=== PATIENT | female | born 2000 | race Caucasian/White ===

== ENCOUNTER 2019-12-29 18:45 | Inpatient (IN) | payer OTHER, MEDICAID, SELFPAY ==
[2017-03-29 15:23] VITALS: BMI 27.8
[2019-12-29] VITALS (11 sets, daily range): BP systolic 134–149; BP diastolic 76–92; PULSE 73–94; TEMP 36.1–36.3; O2SAT 84–98; BMI 33.4
[2019-12-29] MEDS: Lactated Ringers 1,000 ML 50 ML IV (19:25)
[2019-12-29 19:55] LABS: Absolute Lymphocyte Count 2.14 X10^3/uL (0.83-4.51); Absolute Neutrophil Count 7.4 X10^3/uL (2.0-7.7); Basophil# 0.02 X10^3/uL; Basophil% 0.2 % (0-1); Eosinophil# 0.06 X10^3/uL; Eosinophils% 0.6 % (0-5); Hematocrit 34.7 % (37-47); Hemoglobin 10.8 g/dL (12.0-15.0); Lymphocyte # 2.14 X10^3/ul (4.0); Lymphocyte % 20.6 % (19-41); Mean Corp Hgb Conc 31.1 g/dL (32-36); Mean Corpuscular Hgb 27.8 pg (27.0-32.0); Mean Corpuscular Volume 89.4 fL (81-99); Mean Platelet Vol. 11.2 fl (6.2-12.0); Monocyte# 0.72 X10^3/uL; Monocyte% 6.9 % (0-10); NRBC Flagged by Analyzer 0 % (0-5); Neutrophil # 7.43 X10^3/uL (2.7-7.7); Neutrophil % 71.3 % (47-70); Platelet Count 295 K/mm3 (150-450); RBC Distribution Width SD 47.4 fl (35.1-43.9); Red Blood Count 3.88 M/mm3 (4.2-5.4); White Blood Count 10.4 K/mm3 (4.4-11.0)
[2019-12-29] MEDS: 0.9% Normal Saline Single 100 ML IV.SOLN. IY (20:20)
[2019-12-29] MEDS: Oxytocin 30 units/NS 500 ml 30 UNITS/500 ML IV.SOLN IV (20:31)
[2019-12-30] VITALS (52 sets, daily range): BP systolic 107–154; BP diastolic 55–96; PULSE 69–104; RESP 16–18; TEMP 36.1–37.2; O2SAT 93–100
[2019-12-30] MEDS: Lactated Ringers 500 ML 999 ML IV (00:16)
[2019-12-30] MEDS: fentaNYL-bupivacaine (epidural) 100 ML BAG EPIDURAL (01:15)
[2019-12-30] MEDS: Lactated Ringers 1,000 ML 200 ML IV ×2 (03:48→08:49)
[2019-12-30] MEDS: Ondansetron 4 MG/2 ML Vial IV (04:21)
--- NOTE | 2019-12-30 08:21 | HP.PCM_ITS ---
History Date of Admission: 12/30/19 Final DK: 12/23/19 Final DK Source: US <20 weeks Gestational age: 41 Weeks and 0 Days History of this : This is a 19 year-old avid 1 para 0 admitted at 40-6/7 weeks on 12/29/2019 for cervical ripening and induction of labor for 41-week . She denies any vaginal bleeding or leaking of fluid. She had good movement. Is feeling contractions. has been uncomplicated to date. She does have a past medical history of depression. Allergies azithromycin [From Zithromax] Allergy (Mild, Verified 12/29/19 20:01) Rash Home Medications: Home Medications Fluoxetine [Prozac] 20 mg PO DAILY 12/29/19 Pantoprazole Sodium [Protonix] 20 mg PO DAILY 12/29/19 Vit No.130/Iron/Folic [ Tablet] 1 ea PO DAILY 12/29/19 Smoking Status: Former smoker Alcohol: None Number of Fetus(es): 1 History Past Pregnancies: Past Pregnancies Delivery Date Name GA/ Weeks Outcome Route Wt Sex Labor Length Anesthesia Delivery Location Provider FOB Expected Delivery Method: Spontaneous Vaginal Review of Systems Constitutional: Denies: Anorexia, Chills, Fever Eyes: Denies: Blurred vision Cardiovascular: Denies: Chest Pain Respiratory: Denies: Cough, Shortness of Breath Gastrointestinal: Denies: Diarrhea Gynecological: Denies: Vaginal bleeding Skin: Denies: Rash Neurological: Denies: Balance problems, Blurred vision, Slurred speech, Confu francis Hematologic/ Lymphatic: Denies: Easy Bruising, Easy Bleeding, Hx of blood clot Physical Exam Vitals: Vital Signs Temp Pulse BP Pulse Ox 98.4 F 87 144/67 H 94 12/30/19 07:20 12/30/19 08:19 12/30/19 08:17 12/30/19 08:19 General: Alert, Cooperative, No apparent distress Cardiovascular: Regular rate Lungs: Normal air movement Abdomen: Soft, Non Tender, Non-Distended, Gravid Extremities:: No edema Neurological: Cranial nerves II-XII grossly intact, Neuro grossly intact, Muscle tone normal 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 Risk benefits and alternatives to induction of labor been discussed with patient, her questions were answered to her satisfaction she desired to proceed. Consent was previously signed in the office. Estimated weight is less than 4500 g clinically, pelvis clinically adequate to expect vaginal delivery. Seizure note: Payton catheter was placed over stylette into the internal cervical loss without difficulty in the usual sterile fashion. The balloon was inflated to 30 cc. Patient and fetus tolerated the procedure well. Placement of her internal loss was confirmed. Start Pitocin for induction of labor.
[2019-12-30] MEDS: Oxytocin 30 units/NS 500 ml 30 UNITS/500 ML IV.SOLN 334 UNITS IV (09:06)
[2019-12-30] MEDS: miSOPROStol 200 MCG Tablet 800 MCG RECTAL (09:20)
--- NOTE | 2019-12-30 09:22 | PCM.OPRPT ---
Vaginal Delivery Maternal Presentation: Medically Indicated Induction Method of Induction: Pitocin, Payton Bulb Medical Reason for Induction: - - 41 weeks Amniotic Membrane Rupture Type: Artificial Amniotic Fluid Description: Clear Final DK: 12/23/19 Final DK Source: US <20 weeks Gestational age: 41 Weeks and 0 Days Date of Procedure: 12/30/19 Pre-Operative Diagnosis: labor Post-Operative Diagnosis: same Surgery/ Procedure Performed: Spontaneous Vaginal Delivery Type of Anesthesia: Epidural Description of Procedure: A vigorous male was delivered [COLBY] over first-degree vaginal laceration. The remainder the infant was delivered with maternal pushing and gentle traction only in less than 15 seconds. The Pitocin infusion was initiated for active management of the third stage. The cord was clamped and cut [after 1 minute]. The infant was attended to by the waiting nursing staff. The placenta was delivered spontaneously and intact. The cervix and vagina were intact. The fundus was firm, however the patient continued to trickle a small amount of blood even with fundal massage. The Pitocin infusion was going. Another reexamination of the vagina and cervix found them to be intact. Cytotec was given rectally 800 mcg, to prevent atony. First-degree vaginal laceration was repaired with 3-0 Vicryl suture in a running standard fashion. Sponge and needle counts were correct. A vaginal sweep was completed by me. Presentation: COLBY Placental Delivery Description: Spontaneous Placenta Disposition: [facility] Cord Vessel Description: 3 Vessels Cord Entanglement: None Drain: Payton to straight drain - removed before Estimated Blood Loss: 300 Infant A gender: Male - Dusty Episiotomy Description: None Medications given after delivery: IV Pitocin, - - cytotec 800 mcg rectally Complications: None
[2019-12-30] MEDS: FLUoxetine 20 MG Capsule PO (12:06)
[2019-12-30] MEDS: Naproxen 250 MG Tablet 500 MG PO (18:49)
[2019-12-31] VITALS (8 sets, daily range): BP systolic 119–137; BP diastolic 70–82; PULSE 77–105; RESP 16–18; TEMP 36.3–36.8; O2SAT 97–98
--- NOTE | 2019-12-31 09:01 | PCM.PN.OB ---
Subjective: Patient is doing well. Breast-feeding with some nipple pain. Denies lightheadedness, dizziness, chest pain, shortness of breath, leg pain. Lochia normal. Tolerating a diet without nausea or vomiting. Ambulating voiding without difficulty. - Physical Exam Vitals/I&O's: Vital Signs Temp Pulse Resp BP Pulse Ox 98.2 F 77 18 128/70 H 97 12/31/19 07:48 12/31/19 07:48 12/31/19 07:48 12/31/19 07:48 12/31/19 07:48 Oxygen Delivery Method Room Air Weight: 213 lb 10.047 oz Body Mass Index (BMI) 33.4 Intake and Output for Last 24 Hours 12/29/19 12/30/19 12/31/19 23:59 23:59 23:59 Intake Total 941.1 / 941.1 2974.53 / 2974.53 Output Total 500 / 500 1650 / 1650 Balance 441.1 / 441.1 1324.53 / 1324.53 General: Alert, No apparent distress HEENT: Atraumatic Abdomen: Soft, Non Tender, - - FF@U Skin: No rashes Neurological: Neuro grossly intact Psych/Mental Status: Normal Affect, Appropriate Microbiology Past 72 Hours 12/29/19 20:14 Mucosa - Nasopharyngeal Coronavirus COVID-19 PCR - Final Current Medications Acetaminophen (Tylenol) 1,000 mg PO Q8H PRN PRN PRN Reason: Pain Score 1-3/10 Bisacodyl (Dulcolax) 10 mg RECTAL UD PRN PRN Reason: If no BM Dibucaine (Dibucaine) 1 applic TOPICAL TID PRN PRN; Protocol PRN Reason: Discomfort Fluoxetine HCl (Prozac) 20 mg PO DAILY SERVANDO Last Admin: 12/30/19 12:06 Dose: 20 mg Documented by: Hydrocortisone (Hytone) 1 applic TOPICAL TID PRN PRN; Protocol PRN Reason: Discomfort Methylergonovine Maleate (Methergine) 0.2 mg IM X1 PRN PRN Reason: Excess bleeding/uterine atony Naproxen (Naprosyn) 500 mg PO Q8H PRN PRN PRN Reason: Pain Score 1-3/10 Last Admin: 12/30/19 18:49 Dose: 500 mg Documented by: Ondansetron HCl (Zofran) 4 mg IV Q4H PRN PRN PRN Reason: Nausea Prochlorperazine Edisylate (Compazine Iv) 10 mg IV Q6H PRN PRN PRN Reason: NAUSEA/VOMITING Senna/Docusate Sodium (Senokot-S, Casie-Colace) 1 - 2 tablet PO DAILY PRN PRN PRN Reason: Constipation Simethicone (Mylicon) 80 mg PO PCHS PRN PRN Reason: Indigestion/Stomach pain Sodium Chloride () 5 - 15 ml IV UD PRN PRN Reason: SALINE FLUSH Medical Necessity - Tobacco Use Smoking Status: Former smoker Assessment/Plan Patient is day 1 from a vaginal delivery. She is doing well. She desires to stay another night. Continue routine care.
[2019-12-31] MEDS: Senna/Docusate Sodium 1 Tablet PO (11:53)
[2019-12-31] MEDS: FLUoxetine 20 MG Capsule PO (11:54)
[2019-12-31] MEDS: Naproxen 250 MG Tablet 500 MG PO (20:16)
[2020-01-01 02:00] VITALS: BP 119/74; PULSE 82; RESP 16; TEMP 36.4
[2020-01-01 02:09] VITALS: BP 119/74; PULSE 82
--- NOTE | 2020-01-01 08:31 | PCM.PN.OB ---
Subjective: Patient doing well. Denies lightheadedness, dizziness, chest pain, shortness of breath, leg pain. She is ambulating and voiding without difficulty. Tolerating regular diet without nausea or vomiting. Lochia normal. - Physical Exam Vitals/I&O's: Vital Signs Temp Pulse Resp BP Pulse Ox 97.5 F L 82 16 119/74 98 01/01/20 02:00 01/01/20 02:09 01/01/20 02:00 01/01/20 02:09 12/31/19 14:16 Oxygen Delivery Method Room Air Weight: 213 lb 10.047 oz Body Mass Index (BMI) 33.4 Intake and Output for Last 24 Hours 12/30/19 12/31/19 01/01/20 23:59 23:59 23:59 Intake Total 2974.53 / 2974.53 Output Total 1650 / 1650 Balance 1324.53 / 1324.53 General: Alert, No apparent distress HEENT: Atraumatic Abdomen: Soft, Non Tender, - - FF@U Extremities: No Calf Tenderness Skin: No rashes Neurological: Neuro grossly intact Psych/Mental Status: Normal Affect, Appropriate Microbiology Past 72 Hours 12/29/19 20:14 Mucosa - Nasopharyngeal Coronavirus COVID-19 PCR - Final Current Medications Acetaminophen (Tylenol) 1,000 mg PO Q8H PRN PRN PRN Reason: Pain Score 1-3/10 Bisacodyl (Dulcolax) 10 mg RECTAL UD PRN PRN Reason: If no BM Dibucaine (Dibucaine) 1 applic TOPICAL TID PRN PRN; Protocol PRN Reason: Discomfort Fluoxetine HCl (Prozac) 20 mg PO DAILY SERVANDO Last Admin: 12/31/19 11:54 Dose: 20 mg Documented by: Hydrocortisone (Hytone) 1 applic TOPICAL TID PRN PRN; Protocol PRN Reason: Discomfort Methylergonovine Maleate (Methergine) 0.2 mg IM X1 PRN PRN Reason: Excess bleeding/uterine atony Naproxen (Naprosyn) 500 mg PO Q8H PRN PRN PRN Reason: Pain Score 1-3/10 Last Admin: 12/31/19 20:16 Dose: 500 mg Documented by: Ondansetron HCl (Zofran) 4 mg IV Q4H PRN PRN PRN Reason: Nausea Prochlorperazine Edisylate (Compazine Iv) 10 mg IV Q6H PRN PRN PRN Reason: NAUSEA/VOMITING Senna/Docusate Sodium (Senokot-S, Casie-Colace) 1 - 2 tablet PO DAILY PRN PRN PRN Reason: Constipation Last Admin: 12/31/19 11:53 Dose: 2 tablet Documented by: Simethicone (Mylicon) 80 mg PO PCHS PRN PRN Reason: Indigestion/Stomach pain Sodium Chloride () 5 - 15 ml IV UD PRN PRN Reason: SALINE FLUSH Medical Necessity - Tobacco Use Smoking Status: Former smoker Assessment/Plan Patient is day 2 from a vaginal delivery. She is doing well and desires to go home. Reviewed discharge instructions and follow-up in the office.
--- NOTE | 2020-01-01 08:33 | DCINST_ITS ---
Discharge Diet: No Restrictions Discharge Activity: Return to Normal Activity, May Shower, May Take a Tub Bath May resume sexual activity in: 6 weeks Ice area for (Minutes): 15 Weight Bearing Status: Weight bearing as tolerated Lifting Restrictions: None Call your doctor if you observe: Fever of 101 or Higher, Inability to urinate, Inability to have a bowel movement, Using more than one pad per hour, Shortness of breath, Dizziness, Chest pain, Increased palpitations (irregular heartbeat), Calf discomfort, Uncontrolled pain Cleanse incision/area with: Soap & Water Additional Instructions: If you experience any of the following, contact your healthcare provider. * Bleeding that soaks a pad every hour for 2 hours * Fever 100.4 or higher * Unrelieved incision or abdominal pain * Swelling, redness, discharge or bleeding from your incision or episiotomy site * Your incision begins to separate * Problems urinating (including inability to urinate or burning while urinating). * Visual changes * Severe headache * Flu-like symptoms * Pain or redness in one of both of your breasts * Pain, warmth, tenderness or swelling in your legs, especially the calf area * Frequent nausea and vomiting * Symptoms of depression or anxiety If you experience any of the following, call 911 or go to the nearest Emergency Room. * Chest pain * Problems breathing * Seizure activity * Partial or complete paralysis of a body part, slurred speech, weakness or drooping of the face, or a sudden inability to walk or hold your balance Allergies/Adverse Reactions: Allergies azithromycin [From Zithromax] Allergy (Mild, Verified 12/29/19 20:01) Rash Medications to take at Discharge Fluoxetine [Prozac] 20 mg PO DAILY 12/29/19 Pantoprazole Sodium [Protonix] 20 mg PO DAILY 12/29/19 Vit No.130/Iron/Folic [ Tablet] 1 ea PO DAILY 12/29/19 When: In 6 weeks for visit. Can also follow up in 1-2 weeks for virtual visit Primary Care Physician: Yolanda Christian PA-C [Primary Care Provider] - Test Results: Test results from this visit will be discussed in further detail at your follow- up appointment, if applicable.
[2020-01-01 08:55] VITALS: BP 133/59; PULSE 63; RESP 16; TEMP 36.1; O2SAT 99
[2020-01-01 09:00] VITALS: BP 133/59; PULSE 76
[2020-01-01] MEDS: FLUoxetine 20 MG Capsule PO (10:28)
--- NOTE | 2020-01-01 11:15 | CASEMGMT ---
Social Work Brief Assessment - Labor and Delivery Unit Refer documentation below for further details. Date of Referral/Notification: 01/01/2020 Time of Referral: 11:15a Referred By: NURSING Reason for Referral: HISTORY OF DEPRESSION/ANXIETY Informant: Medical record and mother of baby (MOB) History: FIRST TIME MOM WITH HISTORY OF DEPRESSION AND ANXIETY. MOB REPORTS IS PRESCRIBED PROZAC AND MENTAL HEALTH IS WELL MANAGED WITH MEDICATION. Assessment: MET WITH MOB AND FOB IN ROOM. INTRODUCED ROLE AND REASON FOR REFERRAL. MOB REPORTS BABY BOY, KARI COLLINS IS FIRST CHILD FOR BOTH MOB AND FOB, HOLLIE COLLINS. MOB REPORTS GOOD SUPPORT FROM FOB. MOB DISCUSSED MENTAL HEALTH HISTORY AND STATES HAS BEEN TO COUNSELING IN THE PAST. MOB REPORTS TO HAVE MET WITH A PSYCHIATRIST AND WAS PRESCRIBED PROZAC. MOB DENIES ANY NEEDS FOR COUNSELING SERVICES AT THIS TIME AND STATES MENTAL HEALTH IS WELL MANAGED WITH MEDICATION. MOB DENIES ANY HISTORY OF SUBSTANCE USE FOR SELF AND STATES FOB HAS BEEN IN RECOVERY FROM ALCOHOL FOR 6 MONTHS. 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 MOB STATES TO HAVE ALL NEEDS MET FOR BABY INCLUDING; DIAPERS, WIPES, CRIB, CAR SEAT, CLOTHES. MOB REPORTS IS . WHILE DISCUSSING , MOB BECAME TEARFUL. MOB STATES BABY HAS BEEN CLUSTER FEEDING AND HAS LAST NIGHT WAS A ?ROUGH NIGHT?. MUCH SUPPORT, ENCOURAGEMENT AND ACTIVE LISTENING PROVIDED. MOB REPORTS TO HAVE ASKED NURSING SOME QUESTIONS REGARDING . THIS WORKER INFORMED MOB WILL UPDATE NURSING AND ENCOURAGE FOLLOW UP PRIOR TO DISCHARGE. DISCUSSED HELP ME GROW AND MOB OPEN TO REFERRAL. REVIEWED SIGNS/SYMPTOMS OF POST DEPRESSION AND PROVIDED EDUCATIONAL RESOURCES. UPDATED MOB?S NURSE, PAULA ON THIS WORKER?S ASSESSMENT. NURSING CONTACTED NURSE TO FOLLOW UP WITH MOB PRIOR TO DISCHARGE. Plan: HOME WITH RESOURCES PROVIDED. REFERRAL TO HELP ME GROW. No further needs requested or indicated. -Kathie Riley, CHIEF SPECIALIST LEED, BLOCK SAW OPERATOR
--- NOTE | 2020-01-01 15:47 | CASEMGMT ---
SOCIAL WORK HELP ME GROW REFERRAL SUBMITTED VIA [employer]ITE.
--- OUTSIDE RECORDS SUMMARY | 2020-05-20 16:30 | XMS RPT_ITS | CCD ---
:2000 External Reference #:[id number] Author Organization [facility] Team Providers Name Role Phone Unavailable Primary Care Physician Unavailable Allergies Reported Allergen Reaction(s) Severity Date of Onset Location Azithromycin Rash 05-03-2019 - [facility] ([id number]) Medications Medication Name Sig Date Prescriber Location Breast Pump Breast Pump 12-13-2019 - Radha (Carole) Lorri [facility] Indications: 12-10-2020 Radha Parks) Lorri ([id number]) Lactating mother Use as directed 1 Each 0 12/13/2019 12/10/2020 Active Comment: Use as directed FLUoxetine FLUoxetine (PROZAC) 20 11-21-2019 Filiberto Mike [facility] mg capsule Take 1 Filiberto Mike ([id number]) capsule by mouth once daily. 0 11/21/2019 Active Comment: Take 1 capsule by mouth once daily. Levonorgestrel levonorgestrel (MIRENA) 02-19-2020 [facility] Provider Cc f [facility] 20 mcg/24 hours (5 yrs) Provider ([id number]) 52 mg IUD 1 Each by INTRAUTERINE route continuous. 0 02/19/2020 Active Comment: 1 Each by INTRAUTERINE route continuous. pantoprazole ellie CORCORAN (PROTONIX) 12-05-2019 Filiberto joseph [facility] 20 mg tablet Indications: Filiberto Sierra ([id number]) Gastroesophageal reflux disease without esophagitis take 1 tablet by mouth once daily 30 tablet 1 12/05/2019 Active Comment: take 1 tablet by mouth once daily [facility] Provider [facility] Nlrlwheo-Vs-Xnb-Fe-FA Wojururl-Ng-Xry-Fe-FA [facility] ([id number]) ( VITAMIN) tab ( VITAMIN) tab Take 1 tablet by mouth. 0 Active Comment: Take 1 tablet by mouth. Problems Category Problem Name Status Date Location Other liver diseases Elevated liver Completed 10-09-2019 - [facility] enzymes level (14838) Screening and history H/O: depression Completed 05-03-2019 - [facility] and (30177) substance abuse codes Results Result Name Value Range Unit Interpretation Flag Date Location progress on 2020-02 PROGRESS HNO ID: [id number] Normal 02-19-2020 [facility] Author: Filiberto Mike Wynne ([id number]) Service: ? Author Type: Physician Type: Progress Notes Filed: 02/19/2020 4:00 PM Note Text: Kenia Nava presents today for IUD insertion for contrace ption. Patient's last menstrual period was 03/18/2019 (exact date). GC/chlamydia: Collected today test: negative Side effects including irregular bleeding were discussed wit h the patient. She understands that it should be removed in 5 years or soon er if she desires a . IUD source: office provided IUD lot #: [id number] Exp date: 03/2022 UNIVERSAL PROTOCOL / SAFETY CHECKLIST Procedure to be performed: Mirena insertion Sign in Communication: Completed Time Out: Team Confirms the Correct Patient, Correct Procedu re, Correct Site and Site Marking, Correct Position (if applicable), Pre p and Dry Time (if applicable). Time: 1506 Affirmation of Time Out: YES Sign Out Discussion: Completed Filiberto Mike MD The ut erus sounded to 9 cm and the uterus is Retroverted.. After prepping the cervix with betadine and using sterile technique, the Mi mitesh IUD was inserted without difficulty and the string was cut to 2cm fr om the external os of the cervix. Patient tolerated procedure well. PLAN: Patient was advised to observe for signs and symptoms of infection including but not limited to fever, malodorous vaginal disch arge and/or pain. She was told to check the string monthly for accurate placement. Bleeding expectations were reviewed. Follow up for next annual exam or sooner as needed. Filibetro Mike MD gc/chlamydia amplif on 2020-02-19 Chlamydia Amplif Negative for Chlamydia Normal 02-19-2020 [facility] trachomatis by Jarrod ro ([id number]) amplification. Comment: Performed By: #### GCCT #### [facility] [place], [place] [phone] GC Amplification Negative for Neisseria Normal 02-19-2020 [facility] gonorrhoeae by Jarrod ro ([id number]) amplification. Comment: Performed By: #### GCCT #### [facility] [place], [place] [phone] GC/Chlam Amp Source Cervix Normal 02-19-2020 [facility] ([id number]) Comment: Performed By: #### GCCT #### [facility] [place], [place] [id number]- [phone] cnov on 2020-02-19 CNOV Office Visit (OBGYWM) Normal 02-19-20 [facility] KEN[facility] Mel[facility] ([id number]) 2000 [facility] Time Provider Department ([id number]) 02/19/20 2:50 PM FILIBERTO MIKE OBGYWM During your visit today, we recorded the following informati on about you: Blood pressure Weight 110/74 89.8 kg Filiberto Mike MD 02/19/2020 4:00 PM Signed Kenia Nava presents today for IUD insertion for contrace ption. Patient's last menstrual period was 03/18/2019 (exact date). GC/chlamydia: Collected today test: negative Side effects including irregular bleedin g were discussed with the patient. She understands that it should be removed in 5 years or sooner if she desires a . IUD source: office provided IUD lot #: [id number] Exp date: 03/2022 UNIVERSAL PROTOCOL / SAFETY CHECKLIST Procedure to be performed: Mirena insertion Sign in Communication: Completed Time Out: Team Confirms the Correct Patient, Correct P rocedure, Correct Site and Site Marking, Correct Position (if applicable), Prep and Dry Time (if applicable). Time: 1506 Affirmation of Time Out: YES Sign Out Discussion: Completed Filiberto Mike MD The uterus sounded to 9 cm and the uterus is Ret roverted.. After prepping the cervix with betadine and using sterile technique , the Mirena IUD was inserted without difficulty and the string was cut to 2cm from the external os of the cervix. Patient tolerated procedure well. PLAN: Patient was advised to observe for signs and symptoms of infection including but not limited to fever, malodorous v aginal discharge and/or pain. She was told to check the string monthly for accurate placem ent. Bleeding expectations were reviewed. Follow up for next annual exam or sooner as needed. MD Aileen Montejo Ma 02/19/2020 2:45 PM Signed NEXPLANON PATIENT EDUCATION You may remove dressing in 24 hours. Expect some bruising around insertion site. You may take over the counter pain medication (i.e. Tyleno l, motrin, advil, etc) if you have discomfort. Call your provider with excessive bruising or pain. Continue to use condoms for STD prevention. You should use backup contraception for 7 days to prevent pr egnancy. Referring Provider: FILIBERTO MIKE [[id number]] Allergies As of Date: 02/19/2020 Noted Allergy Reaction ZITHROMAX (AZITHROMYCIN) 05/03/2019 2 - Rash Date Reviewed: 02/19/2020 Reviewed by: Aileen Sorto Ma - Fully Assessed Reason for Visit: Insertion Of IUD [291] Primary Visit Diagnosis:Encounter for IUD insertion [Z30.430 ] Order(s):HCG QUAL UR B/O [1162401] Order #: [id number] [] levonorgestrel 20 mcg/24 hours (5 yrs) 52 mg 1 Eac h intrauterine device (MIRENA)Disp: Rfl: GC/CHLAMYDIA DNA DET [SQGCCAMP] Order #: [id number] Prescriptions as of 02/19/2020 Sig: MIRENA 20 MCG/24 HOURS (5 YRS* 1 Each by INTRAUTERINE route * FLUOXETINE 20 MG CAPSULE Take 1 capsule by mouth once * VITAMIN,CALCIUM,MINE* Take 1 tablet by mouth. BREAST PUMP Use as directed Patient not taking: Reported on 02/05/2020 PANTOPRAZOLE 20 MG TABLET,DEL* take 1 tablet by mouth once d * Patient not taking: Reported on 02/05/2020 Problem List As Of Date 02/19/2020 Noted Resolved Nausea and vomiting during [O21.9] 05/03/2019 04/1 12/2019 More... History of depression [Z86.59] 05/03/2019 More... Patient request for diagnostic testing [Z01.89] 05/03/2019 0 11/21/2019 More... Elevated liver enzymes [R74.8] 10/09/2019 More... Other instructions from your clinician: NEXPLANON PATIENT EDUCATION You may remove dressing in 24 hours. Expect some bruising around insertion site. You may take over the counter pain medication (i.e. Tylenol, motrin, advil, etc) if you have discomfort. Call your provider with excessive bruising or pain. Continue to use condoms for STD prevention. You should use backup contraception for 7 days to prevent pr egnancy. Prescriptions ordered this encounter Disp Refills Start End LEVONORGESTREL 20 MCG/24 HOURS (5 YR* 02/19/2020 02/19/2020 Route: INTRAUTERINE Encounter Status:Closed by FILIBERTO MIKE MD on 02/19/20 progress on 2020-01 PROGRESS HNO ID: [id number] Normal 02-05-2020 [facility] Author: Filiberto Mike [facility] ([id number]) Service: ? Author Type: Physician Type: Progress Notes Filed: 02/05/2020 3:21 PM Note Text: VISIT Kenia Nava is a 19 year old year old here for po stpartum visit. Delivery Summary: ROS/ Recovery: Feeding: Bottle feeding problems: None Menses since delivery: n/a Menstrual pattern prior to : Regular periods Morrice since delivery: Not resumed Depression: denies symptoms of depression. (Lines 3 AND 4 applicable if either Lines 1 or 2 are positiv e) 1. Over the past 2 weeks have you felt down, depressed, or h opeless? 2. Over the past two weeks, have you felt little interest or pleasure in doing things? 3. Have you had thoughts of harming yourself or others? N/A 4. [place] Depression Scale (EPDS) Total Score: N/A Emotional support: Yes Bowel symptoms: Negative for abdominal discomfort, blood in stools or black stools and change in bowel habits Abdomen: N/A Bladder symptoms: No dysuria, gross hematuria, urinary frequ ency, urinary urgency, or incontinence Other issues: None Last Pap: 2018 normal HPV: N/A PAST MEDICAL HISTORY Diagnosis Date - Depression - fracture nose PAST SURGICAL HISTORY Procedure Laterality Date - PAST SURGICAL HISTORY OF rhinoplasty for broken nose FAMILY HISTORY Problem Relation Age of Onset - Diabetes Mother prediabetes - Depression Mother - Hypertension Father - Depression Father - No Known Problems Brother - Cancer Maternal Grandmother Bladder - Kidney Disease Maternal Grandfather - No Known Problems Paternal Grandmother - Heart Attack Paternal Grandfather Social History Tobacco Use - Smoking status: Former Smoker Years: 3.00 Types: Cigarettes Last attempt to quit: 05/03/2018 Years since quittin.7 - Smokeless tobacco: Never Used Substance Use Topics - Alcohol use: Never Frequency: Never - Drug use: Never PHYSICAL EXAMINATION: LMP 03/18/2019 GENERAL: pleasant, female in no apparent distress HEENT: Normocephalic, atraumatic, mucus membranes moist and no lesions NECK: Supple, full range of motion, no adenopathy and thyroi d normal DERMATOLOGY: Normal, without lesions, non-icteric and non-hi rsute BREAST: soft, non-tender, symmetric, no dominant mass, carlota l nipple-areolar complex, no lymphadenopathy and no nipple dis charge CHEST: Normal inspiratory effort ABDOMEN: soft, non-tender and no masses. INCISION: No incisi onal redness, swelling, or drainage PELVIC: external genitalia normal, normal Bartholin's glands , urethra, [place]'s glands, no vulvar lesions, no cervical lesions, good vaginal support, physiologic discharge present, normal appearing per ineal body and perianal region BIMANUAL: uterus normal size, shape and consistency, no adne xal masses and non-tender NEURO: alert and oriented x3,exam grossly non-focal EXTREMITIES: normal ASSESSMENT AND PLAN: 19 year old status post with normal c ourse. Contraception plan: IUD - Mirena Follow up: RTC for annual exams and PRN, RTC for insertion o f IUD MD tr Montejo on 2020-01-07 CNPN Telephone (OBGYWM) Normal 01-07-2020 [facility] BRANDYKENIA GIPSON ([id number]) 2000 [facility] Date Time Provider Department ([id number]) 01/07/20 FILIBERTO MIKE During your visit today, we recorded the following informati on about you: Yolanda John LPN 01/07/2020 10:17 AM Signed Received [facility] paperwork for pt, spoke with pt and she is unclear as to when she wants listed as her start da te and end date. Pt has been off work d/t covid and being . Pt is speaking with her HR personal today and will call the office with that information. Yolanda Vance RN 01/14/2020 3:39 PM Signed Patient wants Start date as 12/30/19 and Return to work date 02/09/20. Melvi John LPN 01/14/2020 4:05 PM Signed Paperwork completed and placed on providers desk for signatu re. Yolanda John LPN 01/17/2020 10:00 AM Signed [facility] paperwork signed, faxed to employer, scanned into EMR a nd filed in [employer] suite. Yolanda John LPN Allergies As of Date: 01/07/2020 Noted Allergy Reaction ZITHROMAX (AZITHROMYCIN) 05/03/2019 2 - Rash Date Reviewed: 12/26/2019 Reviewed by: Qasim Green - Fully Assessed Reason for Visit: [place] Paperwork [[id number]] Prescriptions as of 01/07/2020 Sig: BREAST PUMP Use as directed PANTOPRAZOLE 20 MG TABLET,DEL* take 1 tablet by mouth once d * FLUOXETINE 20 MG CAPSULE Take 1 capsule by mouth once * VITAMIN,CALCIUM,MINE* Take 1 tablet by mouth. Problem List As Of Date 01/07/2020 Noted Resolved Nausea and vomiting during [O21.9] 05/03/201911/06 More... History of depression [Z86.59] 05/03/2019 More... Patient request for diagnostic testing [Z01.89] 05/03/2019 0 11/21/2019 More... Elevated liver enzymes [R74.8] 10/09/2019 More... Encounter Status:Closed by YOLANDA JOHN LPN on 01/17/20 progress on 2019-12 PROGRESS HNO ID: [id number] Normal 01-04-2020 [facility] Author: Yolanda John LPN ([id number]) Service: ? Author Type: ? Type: Progress Notes Filed: 01/04/2020 11:02 AM Note Text: Pt delivered via at [facility] on 12/30/[address] Mike. See O B Outcome note. Yolanda John LPN obsolete on 2019-11 OBSOLETE Refill (WOOB) Normal 12-05-2019 [facility] KENIA NAVA ([id number]) 2000 [facility] Time Provider Department ([id number]) 12/05/19 PEYTON COUGHLIN (UMU) WOOB During your visit today, we recorded the following informati on about you: Shaka Harper RN 12/05/2019 1:35 PM Signed Patient has appointment toda y [address] Mike. Request forwarded to Dr Mike Allergies As of Date: 12/05/2019 Noted Allergy Reaction ZITHROMAX (AZITHROMYCIN) 05/03/2019 2 - Rash Date Reviewed: 11/28/2019 Reviewed by: Filiberto Mike - Fully Assessed Reason for Visit: Refill Request [94] Visit Diagnosis:Gastroesophageal reflux disease without es ophagitis [K21.9] Order(s):pantoprazole DR (PROTONIX) 20 mg tablettake 1 tab let by mouth once dailyDisp: 30 tabletRfl: 1 Prescriptions as of 12/05/2019 Sig: PANTOPRAZOLE 20 MG TABLET,DEL* take 1 tablet by mouth once d * BREAST PUMP Use as directed FLUOXETINE 20 MG CAPSULE Take 1 capsule by mouth once * PROCHLORPERAZINE MALEATE 10 M* Take 1 tablet by mouth every * VITAMIN,CALCIUM,MINE* Take 1 tablet by mouth. Problem List As Of Date 12/05/2019 Noted Resolved Nausea and vomiting during [O21.9] 05/03/201911/06 More... History of depression [Z86.59] 05/03/2019 More... Patient request for diagnostic testing [Z01.89] 05/03/2019 0 11/21/2019 More... Elevated liver enzymes [R74.8] 10/09/2019 More... Prescriptions ordered this encounter Disp Refills Start End PANTOPRAZOLE 20 MG TABLET,DELAYED RE* 30 t* 1 12/05/2019 Route: ORAL Sig: take 1 tablet by mouth once daily Medications Discontinued During This Encounter pantoprazole DR (PROTONIX) 20 mg tab* 30 t* 1 09/28/201912/04 Route: ORAL Sig: Take 1 tablet by mouth once daily. Disc: Reason for discontinue is not on file. Encounter Status:Closed by FILIBERTO MIKE MD on 12/05/19 group b strep pcr o n 2019-12-05 GROUP B STREP PCR Negative for Group B Normal 0 12-05-2019 [facility] Streptococcus by PCR. Ricci ([id number]) Comment: Performed By: #### GCCT #### [facility] [address] [id number] history physical on 2019-10-15 HISTORY PHYSICAL HNO ID: [id number] Normal - [facility] Author: Yari Wynne ([id number]) Service: ? Author Type: Nurse Practitioner Type: HANDP Filed: 10/15/2019 8:20 PM Note Text: Kenia Nava a 19 year old female who is a consultation re quested by DARIO Lo, for an opinion regarding reflux. Tali blackmon recommendations will be communicated back to the requesting provider by way of shared Medical record. The patient has not been seen previously. The patient saw Peyton on leading to this consultat ion. Part of that note follows: Has taken tums, pepto bismol, pepcid, and omeprazole for heartburn and no relief. Previously seen on 09/09/19 in ED at [facility] in [place], CT scan showed hiatel hernia, given IV fluids and la bs, dehydration. Seen at [facility] yesterday for chest pain , given pepcid. Emesis x 2 each day she went to the ED, not at any o ther time. Was also told liver enzymes were elevated. Pain is mid epigastri c each time, rates pain 4-5/10 when it happens. Does not notice a relatio nship to anything she has eaten. Denies diarrhea or constipation. She was prescribed pantoprazole. Component Latest Ref Rng AND Units 10/11/2019 Protein, Total 6.3 - 8.0 g/dL 6.2 (L) Albumin 3.9 - 4.9 g/dL 4.0 Calcium 8.5 - 10.2 mg/dL 9.3 Bilirubin, Total 0.2 - 1.3 mg/dL 0.2 Alkaline Phosphatase 34 - 123 U/L 106 AST 13 - 35 U/L 25 Glucose 74 - 99 mg/dL 83 BUN 7 - 21 mg/dL 10 Creatinine 0.58 - 0.96 mg/dL 0.60 Sodium 136 - 144 mmol/L 138 Potassium 3.7 - 5.1 mmol/L 3.8 Chloride 97 - 105 mmol/L 103 CO2 22 - 30 mmol/L 21 (L) Anion Gap 9 - 18 mmol/L 14 ALT 7 - 38 U/L 14 eGFR- >60 eGFR-All Other Races . >60 Presenting complaint: The patient presents today reporting t hat she is taking pantoprazole each morning. She tells me it has kept the major pain away, but I still get heartburn sometimes. Uses famotidine and TUMs to supplement. Normally has dinner around 6-7. She heads to bed about 8:00. She sleeps on a regular mattress on a bed frame with the head of the bed f lat. She sleeps on her back and side. We discussed eating small snack like meals 5-6 times a day, wait three hours between eating and laying down, elevating the head of the bed 6 inches or using a wedge and/or body pillow. REVIEW OF SYSTEMS: GENERAL: No weight loss, malaise or fevers RESPIRATORY: Negative for cough, hemoptysis, wheezing, COPD, dyspnea or shortness of breath CARDIOVASCULAR: Negative for chest pain, leg swelling, hyper tension, CHF or palpitations GI: The patient states that her appetite has been adequate. She does get hungry. There has been no nausea, no vomiting. She denies dy sphagia and denies odynophagia. There has occasionally been indigestion with heartburn. There has partially been regurgitation. Bowel hab its have been regular. The patient denies rectal bleeding. There has not b een melena. No new or worsening abdominal pain. 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 PSYCH: Negative for anxiety or depression. HEMATOLOGY/LYMPHOLOGY Negative for prolonged bleeding, bruis ing easily or swollen nodes ENDOCRINE: Negative for cold or heat intolerance, polyuria, polydipsia and goiter NEURO: No history of headaches, syncope, paralysis, seizures or tremors All other reviewed and negative other than HPI. PAST MEDICAL HISTORY Diagnosis Date - Depression - fracture nose PAST SURGICAL HISTORY Procedure Laterality Date - PAST SURGICAL HISTORY OF rhinoplasty for broken nose FAMILY HISTORY Problem Relation Age of Onset - Diabetes Mother prediabetes - Depression Mother - Hypertension Father - Depression Father - No Known Problems Brother - Cancer Maternal Grandmother Bladder - Kidney Disease Maternal Grandfather - No Known Problems Paternal Grandmother - Heart Attack Paternal Grandfather Current Outpatient Medications Medication Sig Dispense Refill - pantoprazole DR (PROTONIX) 20 mg tablet Take 1 tablet by m outh once daily. 30 tablet 1 - Csxzrmzm-Gv-Lxi-Fe-FA ( VITAMIN) tab Take 1 tablet by mouth. - levomilnacipran ER (FETZIMA) 40 mg Take by mouth once marcel y. No current facility-administered medications for this visit. SOCIAL HISTORY: Patient is single. She quit smoking 1 1/2 years ago. She rep orts her alcohol use as never. PHYSICAL EXAMINATION: Blood pressure (P) 130/70, pulse (P) 86, height (P) 170.2 cm (5' 7), weight (P) 83.5 kg (184 lb), last menstrual period 9, SpO2 (P) 98 %. General Appearance: Well appearing, alert, in no acute distr ess, well-hydrated, well nourished. Skin: Skin color, texture, turgor normal, no suspicious rash es or lesions. Head: Normocephalic, no masses, lesions or abnormalities. Eyes: Anicteric sclera. Oropharynx: Lips, mucosa, and tongue normal, teeth and oroph arynx normal. Neck: Supple, no adenopathy; thyroid symmetric, normal size. Lungs: lungs clear to auscultation. No wheezing, rhonchi, ra les. Heart: RRR without murmur. Abdomen: Abdomen soft, non-tender. Bowel sounds normal. Extremities: No deformities, edema, skin discoloration, club phyllis or cyanosis. Impression: hiatal hernia 2)heartburn - 30 weeks Plan: Stool for Hpylori. Will consider treating if positive. Continue pantoprazole. vitamins must be taken with food. Sma ll snack like meals 5-6 times a day. Do not lay down less than 3 hours aft er eating. Elevate the head of the bed 6 inches or use a wedge pillow o r body pillow (if a side sleeper). She agrees with this plan. I have perso caho interviewed and examined this patient. I have reviewed the i nformation that the MA entered for this encounter. I spent 25 minutes i n the visit, with greater than 50% of the total vjmw-yp-isad time of the visit in counseling and coordination of care. SURAJ Dominguez APRN.CNP on 2019-10-15 CNOV Office Visit (GASTW) Normal 10-15-[address] [place] [address] [facility] KENIA NAVA ([id number]) 2000 [facility] Date Time Provider Department ([id number]) 10/15/19 3:40 PM YARI RUTLEDGE [facility] During your visit today, we recorded the following informati on about you: Yari Rutledge RN APRN.CNP 10/15/2019 3:30 PM Addendum We will send you the results of the stool test via [facility]. Continue pantoprazole. vitamins must be taken with food. Small snack like meals 5-6 times a day. Do not lay down less than 3 hours after eating. Elevate the head of the bed 6 inches or use a wedge pillow or body pillow (if a side sleeper). Yari Rutledge RN [employer] OFFICER.RECEIVING INSPECTOR 10/15/2019 8:20 PM Signed Kenia Nava a 19 year old female who is a consultation requested by DARIO Lo, for an opinion regarding reflux. My final recommendations will be communicated back to the requesting provider by way of shared Medical record. The patient has not been seen previously. The patient saw Peyton on leading to is consultation. Part of that note follows: Has taken tums, pepto bismol, pepcid, and omep razole for heartburn and no relief. Previously seen on 09/09/19 in ED at [facility] in [place], CT scan showed hiatel hernia, given IV fluids and labs , dehydration. Seen at [facility] yesterday for chest pain, given pepcid. Emesis x 2 each day she went to the ED, not at any other time. Was also told liver e nzymes were elevated. Pain is mid epigastric each ti me, rates pain 4-5/10 when it happens. Does not notice a relationship to anything she has eat en. Denies diarrhea or constipation. She was prescribed pantoprazole. Component Latest Ref Rng AND Units 10/11/2019 Protein, Total 6.3 - 8.0 g/dL 6.2 (L) Albumin 3.9 - 4.9 g/dL 4.0 Calcium 8.5 - 10.2 mg/dL 9.3 Bilirubin, Total 0.2 - 1.3 mg/dL 0.2 Alkaline Phosphatase 34 - 123 U/L 106 AST 13 - 35 U/L 25 Glucose 74 - 99 mg/dL 83 BUN 7 - 21 mg/dL 10 Creatinine 0.58 - 0.96 mg/dL 0.60 Sodium 136 - 144 mmol/L 138 Potassium 3.7 - 5.1 mmol/L 3.8 Chloride 97 - 105 mmol/L 103 CO2 22 - 30 mmol/L 21 (L) Anion Gap 9 - 18 mmol/L 14 ALT 7 - 38 U/L 14 eGFR- >60 eGFR-All Other Races . >60 Presenting complaint: The patient presents today reporting that she is taking pantoprazole each morning. S he tells me it has kept the major pain away, but I still get heartburn sometimes. Uses famotidine and TUMs to supplement. Normally has dinner around 6-7. She heads to bed about 8:00. She sleeps on a regular mattress on a bed frame with the head of the ed flat. She sleeps on her back and side. We discussed eating small snack like meals 5-6 times a day, wait three hours between eating and laying do wn, elevating the head of the bed 6 inches or using a wedge and/or body pillow. REVIEW OF SYSTEMS: GENERAL: No weight loss, malaise or fevers RESPIRATORY: Negative for cough, hemoptysis, wheezing, COPD, dyspnea or shortness of breath CARDIOVASCULAR: Negative for chest pain, leg swelling, hyp ertension, CHF or palpitations GI: The patient states that her appetite has been adequate. She does get hungry. There has been no nausea, no vom iting. She denies dysphagia and denies odynophagia. There has occasionally been indigestion with heartburn. There has partially been regurgitation. Bowel habits have been regular . The patient denies rectal bleeding. There has not been melena. No new or worsening abdominal pain. 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 PSYCH: Negative for anxiety or depression. HEMATOLOGY/LYMPHOLOGY Negative for prolonged bleeding, bruis ing easily or swollen nodes ENDOCRINE: Negative for cold or heat intolerance, polyuria, polydipsia and goiter NEURO: No history of headaches, syncope, paralysis, seizures or tremors All other reviewed and negative other than HPI. PAST MEDICAL HISTORY Diagnosis Date - Depression - fracture nose PAST SURGICAL HISTORY Procedure Laterality Date - PAST SURGICAL HISTORY OF rhinoplasty for broken nose FAMILY HISTORY Problem Relation Age of Onset - Diabetes Mother prediabetes - Depression Mother - Hypertension Father - Depression Father - No Known Problems Brother - Cancer Maternal Grandmother Bladder - Kidney Disease Maternal Grandfather - No Known Problems Paternal Grandmother - Heart Attack Paternal Grandfather Current Outpatient Medications Medication Sig Dispense Refill - pantoprazole DR (PROTONIX) 20 mg tablet Take 1 tablet by mouth once daily. 30 tablet 1 - Qanaqjoi-Yc-Vdl-F e-FA ( VITAMIN) tab Take 1 tablet by mouth. - levomilnacipran ER (FETZIMA) 40 mg Take by mouth once marcel y. No current facility-administered medications for this visit. SOCIAL HISTORY: Patient is single. She quit smoking 1 1/2 years ago. S he reports her alcohol use as never. PHYSICAL EXAMINATION: Blood pressure (P) 130/70, pulse (P) 86, height (P) 17 0.2 cm (5' 7), weight (P) 83.5 kg (184 lb), last menstrual period 03/18/2019, SpO2 (P) 98 %. General Appearance: Well bowen earing, alert, in no acute distress, well-hydrated, well nourished. Skin: Skin color, texture, turgor normal, no suspicious rash es or lesions. Head: Normocephalic, no masses, lesions or abnormalities. Eyes: Anicteric sclera. Oropharynx: Lips, mucosa, and tongue normal, teeth and oroph arynx normal. Neck: Supple, no adenopathy; thyroid symmetric, normal size. Lungs: lungs clear to auscultation. No wheezing, rhonchi, ra les. Heart: RRR without murmur. Abdomen: Abdomen soft, non-tender. Bowel sounds normal. Extremities: No deformities, edema, skin discolo ration, clubbing or cyanosis. Impression: hiatal hernia 2)heartburn - 30 weeks Plan: Stool for Hpylori. Will consider treating if positive. Continue pantoprazole. vitam ins must be taken with food. Small snack like meals 5-6 times a day. Do not lay down less than 3 hours aft er eating. Elevate the head of the bed 6 inches or use a wedge pillow or body maria elena w (if a side sleeper). She agrees with is plan. I have personally interviewed and examined this patient. I have reviewed the information that the MA en tered for this encounter. I spent 25 minutes in the vis it, with greater than 50% of the total ayoj-kf-bdbr time of the visit in counseling and coordinatio n of care. Yari Rutledge RN [employer] OFFICER.RECEIVING INSPECTOR Referring Provider: PEYTON COUGHLIN ([facility]) [[id number]] Allergies As of Date: 10/15/2019 Noted Allergy Reaction ZITHROMAX (AZITHROMYCIN) 05/03/2019 2 - Rash Date Reviewed: 10/15/2019 Reviewed by: Tequila Palomino Ma - Fully Assessed Reason for Visit: Consult [502] Cmt: reflux Primary Visit Diagnosis:Hiatal hernia [K44.9] Other Visit Diagnoses:Gastroesophageal reflux disease withou t esophagitis [K21.9] Functional dyspepsia [K30] Order(s):CONSULT TO GASTROENTEROLOGY [9010] Order #: [id number] 388Qty: 1 H PYLORI AG BY EIA,STOOL [SQHPYLAG] Order #: [id number] FUTU RE Prescriptions as of 10/15/2019 Sig: PANTOPRAZOLE 20 MG TABLET,DEL* Take 1 tablet by mouth once d * VITAMIN,CALCIUM,MINE* Take 1 tablet by mouth. LEVOMILNACIPRAN ER 40 MG CAPS* Take by mouth once daily. Problem List As Of Date 10/15/2019 Noted Resolved Nausea and vomiting during [O21.9] 05/03/2019 More... History of depression [Z86.59] 05/03/2019 More... Patient request for diagnostic testing [Z01.89] 05/03/2019 More... Elevated liver enzymes [R74.8] 10/09/2019 More... Other instructions from your clinician: We will send you the results of the stool test via [facility]. Continue pantoprazole. vitamins must be taken with food. Small snack like meals 5-6 times a day. Do not lay down less than 3 hours after eating. Elevate the head of the bed 6 inches or use a wedge pillow o r body pillow (if a side sleeper). Encounter Status:Closed by YARI RUTLEDGE CNP on 10/15/19 comp metabolic panel on 2019-10-11 Albumin [Mass/Vol] 4.0 3.9-4.9 g/dL Normal 10-11-2019 [facility] ([id number]) Comment: Performed By: #### GCCT #### [facility] [address] [place], [place] [address] ALP [Catalytic activity/Vol] 106 34-123 U/L Normal 0 10-11-2019 [facility] (79715) Comment: Performed By: #### GCCT #### [facility] [address] [place], [place] [address] ALT [Catalytic activity/Vol] 14 7-38 U/L Normal 0 10-11-2019 [facility] (47936) Comment: Performed By: #### GCCT #### [facility] [address] [place], [place] [address] Anion gap [Moles/Vol] 14 9-18 mmol/L Normal 10-11-19 20 [facility] (39734) Comment: Performed By: #### GCCT #### [facility] [address] [place], [place] [address] AST [Catalytic activity/Vol] 25 13-35 U/L Normal 0 10-11-2019 [facility] (09281) Comment: Performed By: #### GCCT #### [facility] [address] [place], [place] [address] Bilirubin [Mass/Vol] 0.2 0.2-1.3 mg/dL Normal 0 [facility] (72015) Comment: Performed By: #### GCCT #### [facility] [address] [place], [place] [address] Calcium [Mass/Vol] 9.3 8.5-10.2 mg/dL Normal 10-11-2019 [facility] (74675) Comment: Performed By: #### GCCT #### [facility] [address] [place], [place] [address] Chloride [Moles/Vol] 103 97-105 mmol/L Normal 0 [facility] (91388) Comment: Performed By: #### GCCT #### [facility] [address] [place], [place] [address] CO2 [Moles/Vol] 21 22-30 mmol/L Low 10-11-2019 [facility] (97593) Comment: Performed By: #### GCCT #### [facility] [address] [place], [place] [address] Creatinine [Mass/Vol] 0.60 0.58-0.96 mg/dL Normal 10-11-19 20 [facility] (77514) Comment: Performed By: #### GCCT #### [facility] [address] [place] [id number] eGFR- Amer. >60 Normal 10-11-2019 [facility] (21229) Comment: Performed By: #### GCCT #### [facility] [address] [place], [place] [address] GFR/1.73 sq M predicted >60 mL/min/{1.73_m2} Normal 10-11-2019 [facility] among non-blacks MDRD [facility] (49111) (S/P/Bld) [Vol rate/Area] Comment: Result Comment: eGFR (Estima kayla GFR) Units of measure: mL/min/1.73 meters squared eGFR is derived from the ree xpressed MDRD Study equation using the following parameters: serum creatinine, age, gender and race. The creatinine assay has been calibrated to be traceable to IDMS. An eGFR <60 mL/min/1.73m2 fo r >3 months is consistent with chronic kidney disease. Refer to KDOQI guidelines for clinical interpretation. In patients with unstable re nal function, e.g. those with acute kidney injury, the eGFR may not accurately reflect actual GFR. Performed By: #### GCCT #### [facility] [address] [place], [place] [id number] Glucose [Mass/Vol] 83 74-99 mg/dL Normal 10-11-2019 [facility] (27638) Comment: Result Comment: The [place] Diabetes Association (ADA) provides guidance for cutoff values for fasting glucose and random glucose. The ADA defines fasting as no caloric intake for at least 8 hours. Fas ting plasma glucose results between 100 to 125 mg/dL indicate increased risk for diabetes (prediabetes). Fasting plasma glucose resul ts greater than or equal to 126 mg/dL meet the criteria for diagnosis of diabetes. In the absence of unequivocal hyperglycemia, results should be confirmed by repeat testing. In a patient with classic s ymptoms of hyperglycemia or hyperglycemic crisis, random plasma glucose results greater than or equal to 200 mg/dL meet the criteria for diagnosis of diabetes. Reference: Standards of [facility] Care in Diabetes 2016, [place] Diabetes Association. Diabetes Care. 2016.39(Suppl 1). Performed By: #### GCCT #### [facility] [address] [place], [place] [address] Potassium [Moles/Vol] 3.8 3.7-5.1 mmol/L Normal 10-11-19 [facility] (21559) Comment: Performed By: #### GCCT #### [place] [address] Protein [Mass/Vol] 6.2 6.3-8.0 g/dL Low 10-11-2019 [facility] (07466) Comment: Performed By: #### GCCT #### [place] [address] [place], [place] [address] Sodium [Moles/Vol] 138 136-144 mmol/L Normal 10-11-2019 [facility] (40001) Comment: Performed By: #### GCCT #### [place] [address] [place], [place] [address] Urea nitrogen [Mass/Vol] 10 7-21 mg/dL Normal 10-10 [facility] (02872) Comment: Performed By: #### GCCT #### [place] [address] [place] [id number] cur on 2019-09-29 CUR . Normal 09-29-2019 Andrew carballo MICRO - Microbiology [facility] ([place]) (28250) PROCEDURE: Urine Culture [*1] SOURCE: Urine, Clean Catch BODY SITE: COLLECTED DATE/TIME: 09/27/19 14:08 EST RECEIVED DATE/TIME: 09/27/2019 14:29 EST START DATE/TIME: 09/27/2019 14:29 EST FREE TEXT SOURCE: FINAL REPORTS Final Report [] Verified Date/Time/Personnel: 09/29/2019 07:28 EST No growth at 48 hours. PRELIMINARY REPORTS Preliminary Report [] Verified Date/Time/Personnel: 09/28/2019 08:39 EST No growth to date Performing Locations *1: This test was performed at: [facility], [address] [place] [address], [address] , [place] Comment: Performed By: #### UA, UAMIC #### [address] [address] protein/creatinine ratio on 2019-09-28 Creatinine,Urine,Ran 187.9 20-300 mg/dL Normal 0 [facility] (57407) Comment: Performed By: #### GCCT #### [facility] [address] [place], [place] [address] Protein (U) [Mass/Vol] 13 0-20 mg/dL Normal 020 [facility] (49414) Comment: Performed By: #### GCCT #### [facility] [address] [place], [place] [address] Protein/Creatinine Ratio 0.1 <0.2 Normal 09-28 [facility] (11274) Comment: Performed By: #### GCCT #### [facility] [address] [place], [place] [address] progress on 2019-09 PROGRESS HNO ID: [id number] Normal 09-28-2019 [facility] Author: Bre Ford) Carmen Wynne ([id number]) Service: ? Author Type: Patient Services Rep Type: Progress Notes Filed: 10/01/2019 4:11 PM Note Text: Patient identified by name and date of . Kenia Nava presents today for a vaccination of Tdap. Patient denies an allergy to latex: yes Patient denies a severe (life-threatening) allergy to a prev ious dose of Tdap, DTP, DTaP, DT or Td vaccine. Yes Patient denies history of epilepsy or neurological problems: Yes Patient is afebrile and denies being moderately or severely ill: Yes Patient denies history of Guillain-Coyle Syndrome (a severe paralytic illness): Yes Tdap Adacel injection was given without incident. See immunizations for details of immunizations administered today. VIS sheet provided: Yes Provider Peyton Coughlin CNM was present in office at time of injection. Bre Morales MA cbc and differential on 2019-09-28 Abs Baso 0.03 <0.11 k/uL Normal 09-28-2019 [facility] (72454) Comment: Performed By: #### CBCDIF ## ##[address] [phone] Abs Ciales 0.74 <0.87 k/uL Normal 09-28-2019 [facility] (92842) Comment: Performed By: #### CBCDIF ## ##[address] [id number]- [phone] Abs Neut 7.55 1.45-7.50 k/uL High 09-28-2019 [facility] (06732) Comment: Performed By: #### CBCDIF ## ##[address] [phone]- [phone] Absolute nRBC <0.01 <0.01 Normal 09-28-2019 [facility] (84369) Comment: Performed By: #### CBCDIF ## ##[address] [phone]- [phone] Basophils/100 WBC (Bld) 0.3 % Normal 2019 [facility] (16109) Comment: Performed By: #### CBCDIF ## ##[address] [phone] DTYPE Auto Diff Normal 09-28-2019 [facility] (10290) Comment: Performed By: #### CBCDIF ## ##[place] [address] [place], [place] [phone]- [phone] Eosinophils (Bld) [#/Vol] 0.08 <0.46 k/uL Normal 09-09 [facility] (31479) Comment: Performed By: #### CBCDIF ## ##[place] [address] [place], [place] [phone]- [phone] Eosinophils/100 WBC (Bld) 0.8 % Normal 09-09 [facility] (11696) Comment: Performed By: #### CBCDIF ## ##[place] [address], [place] [phone]- [phone] Erythrocyte distribution 11.9 11.5-15.0 % Normal 09-28 [facility] width (RBC) [Ratio] [facility] (50587) Comment: Performed By: #### CBCDIF ## ##[place] [address], [place] [phone]- [phone] Hematocrit (Bld) [Volume 37.2 36.0-46.0 % Normal 09-28 [facility] fraction] [facility] (20344) Comment: Performed By: #### CBCDIF ## ##[place] [address], [place] [phone]- [phone] Hemoglobin (Bld) 12.0 11.5-15.5 g/dL Normal 09-28-2019 [facility] [Mass/Vol] [facility] (97880) Comment: Performed By: #### CBCDIF ## ##[place] [address] [place], [place] [id number] [phone] Lymphocytes (Bld) [#/Vol] 1.89 1.00-4.00 k/uL Normal 09-09 [facility] (25649) Comment: Performed By: #### CBCDIF ## ##[place] [address] [place], [place] [phone]- [phone] Lymphocytes/100 WBC (Bld) 18.4 % Normal 09-09 [facility] (91021) Comment: Performed By: #### CBCDIF ## ##[place] [address], [place] [phone]- [phone] MCH (RBC) [Entitic mass] 31.2 26.0-34.0 pG Normal 09-28 [facility] (71299) Comment: Performed By: #### CBCDIF ## ##[place] [address], [place] [phone]- [phone] MCHC (RBC) [Mass/Vol] 32.3 30.5-36.0 g/dL Normal 09-28-19 [facility] (93716) Comment: Performed By: #### CBCDIF ## ##[place] [address], [place] [phone]- [phone] MCV (RBC) [Entitic vol] 96.6 80.0-100.0 fL Normal 09-28 [facility] (03074) Comment: Performed By: #### CBCDIF ## ##[place] [address], [place] [phone] Monocytes/100 WBC (Bld) 7.2 % Normal 2019 [facility] (14095) Comment: Performed By: #### CBCDIF ## ##[place] [address], [place] [phone]- [phone] Neutrophils/100 WBC (Bld) 73.3 % Normal 09-09 [facility] (50551) Comment: Performed By: #### CBCDIF ## ##[place] [address], [place] [phone]- [phone] NRBCs 0.0 0 /100 WBC Normal 09-28-2019 [facility] (62253) Comment: Performed By: #### CBCDIF ## ##[place] [address], [place] [phone]- [phone] Platelet mean volume 10.5 9.0-12.7 fL Normal 0 [facility] (Bld) [Entitic vol] [facility] (72159) Comment: Performed By: #### CBCDIF ## ##[facility] [address] [place], [place] [phone]- [phone] Platelets (Bld) [#/Vol] 355 150-400 k/uL Normal 2019 [facility] (72621) Comment: Performed By: #### CBCDIF ## ##[facility] [address] [place], [place] [phone]- [phone] RBC (Bld) [#/Vol] 3.85 3.90-5.20 m/uL Low 09-28-2019 [facility] (20778) Comment: Performed By: #### CBCDIF ## ##[facility] [place] [address] [phone] WBC (Bld) [#/Vol] 10.29 3.70-11.00 k/uL Normal 09-28-2019 [facility] (19349) Comment: Performed By: #### CBCDIF ## ##[facility] [place], [place] [phone] 50g, 1hr gest. gscrn on 2019-09-28 Glucose [Mass/Vol] 80 74-134 mg/dL Normal 09-28-2019 [facility] (47578) Comment: Result Comment: [place] [facility] n[facility] of Obstetricians and Gynecologists ([facility]aritza/Rachna[facility] es state a gestational diabetes mellitus positive screen is made, in women not previously diagnosed with overt diabetes, when the 1 hr plas ma glucose level is equal to or above 140 mg/dL. The [facility] [employer] Professor and [facility] [place] recommends a 135 mg/dL cutoff. Performed By: #### GCCT #### [facility] [address] [place], [place] [address] ua on 2019-09-27 Color (U) Yellow Normal 09-27-2019 [facility] ([place]) (22092) Comment: Performed By: #### UA, UAMIC #### [address] [address] Glucose (U) [Mass/Vol] Negative Negative mg/dL Normal 020 [facility] ([place]) (21530) Comment: Performed By: #### UA, UAMIC #### [address] [address] Ketones Ql (U) Negative Neg-Trace Normal 09-27-2019 [facility] ([place]) (52779) Comment: Performed By: #### UA, UAMIC #### [address] [address] UA Appear Clear Clear Normal 09-27-2019 [facility] ([place]) (03835) Comment: Performed By: #### UA, UAMIC #### [address] [address] UA Blood Negative Neg-Trace Normal 09-27-2019 [facility] ([place]) (03291) Comment: Performed By: #### UA, UAMIC #### [address] [address] UA Leuk Est Negative Negative Normal 09-27-2019 [facility] ([place]) (85162) Comment: Performed By: #### UA, UAMIC #### [address] [address] UA Nitrite Negative Negative Normal 09-27-2019 [facility] ([place] (93009) Comment: Performed By: #### UA, UAMIC #### [address] [address] UA pH 7.5 5.0 - 8.0 Normal 09-27-2019 [facility] ([place]) (05848) Comment: Performed By: #### UA, UAMIC #### [address] [address] UA Protein Negative Negative Normal 09-27-2019 [facility] ([place]) (81018) Comment: Performed By: #### UA, UAMIC #### [address] [address] UA Spec Grav <=1.005 1.006-1.029 09-27-2019 [facility] ([place]) (10513) Comment: Performed By: #### UA, UAMIC #### [place] [address] UA Specimen Type Clean Catch Normal 09-27-2019 [facility] ([place]) (97789) Comment: Performed By: #### UA, UAMIC #### [place] [address] UA Urobilinogen 1.0 0.2-1.0 E.U./dL Normal 09-27-2019 [facility] ([place]) (84465) Comment: Performed By: #### UA, UAMIC #### [place] [address] Urobilinogen Qn (U) Negative Neg-Trace Normal 09-27-2019 [facility] ([place]) (0000 0) Comment: Performed By: #### UA, UAMIC #### [place] [address] ldh on 2019-09-27 LDH 178 120-246 U/L Normal 09-27-2019 [facility] ([place]) (76328) Comment: Performed By: #### UA, UAMIC #### [address] [address] cmp on 2019-09-27 Albumin/Globulin [Mass ratio] 0.8 0.9-1.6 ratio Low 09-27-2019 [facility] ([place]) (41889) Comment: Performed By: #### UA, UAMIC #### [address] [address] ALP [Catalytic activity/Vol] 134 38-126 U/L High 0 09-27-2019 [facility] ([place] (0000 0) Comment: Performed By: #### UA, UAMIC #### [place] [address] ALT [Catalytic activity/Vol] 34 10-49 U/L Normal 0 09-27-2019 [facility] ([place] (0000 0) Comment: Performed By: #### UA, UAMIC #### [address] [address] AST [Catalytic activity/Vol] 61 8-34 U/L High 0 09-27-2019 [facility] ([place] (0000 0) Comment: Performed By: #### UA, UAMIC #### [address] [address] Bili Total 0.8 0.2-1.2 mg/dL Normal 09-27-2019 [facility] ([place] (32399) Comment: Performed By: #### UA, UAMIC #### [place] [phone] Creatinine [Mass/Vol] 0.46 0.50-1.20 mg/dL Low 09-27-19 20 [facility] ([place] (0000 0) Comment: Performed By: #### UA, UAMIC #### [place] [phone] Globulin (S) [Mass/Vol] 3.9 1.5-3.8 G/dL High 2019 [facility] ([place] (0000 0) Comment: Performed By: #### UA, UAMIC #### [address] [address] Protein [Mass/Vol] 7.0 6.0-8.5 G/dL Normal 09-27-2019 [facility] ([place] (81623) Comment: Performed By: #### UA, UAMIC #### [place] [phone] Urea nitrogen/Creatinine 13.0 10.0-22.0 ratio Normal 09-27 [facility] [Mass ratio] [facility] ([place]) (62679) Comment: Performed By: #### UA, UAMIC #### [address] [address] Albumin [Mass/Vol] 3.1 3.2-4.8 G/dL Low 09-27-2019 [facility] ([place]) (64457) Comment: Performed By: #### UA, UAMIC #### [address] [address] Calcium [Mass/Vol] 8.9 8.4-10.1 mg/dL Normal 09-27-2019 [facility] ([place] (0000 0) Comment: Performed By: #### UA, UAMIC #### [address] [address] Chloride [Moles/Vol] 108 98-110 mEq/L Normal 0 [facility] ([place] (0000 0) Comment: Performed By: #### UA, UAMIC #### [address] [address] CO2 [Moles/Vol] 27 22-32 mEq/L Normal 09-27-2019 [facility] ([place]) (95288) Comment: Performed By: #### UA, UAMIC #### [address] [address] Electrolyte Balance 6.0 4.0-15.0 mEq/L Normal 09-27-2019 [facility] ([place]) (0000 0) Comment: Performed By: #### UA, UAMIC #### [address] [address] Glucose [Mass/Vol] 101 70-110 mg/dL Normal 09-27-2019 [facility] ([place] (14116) Comment: Performed By: #### UA, UAMIC #### [address] [address] Potassium [Moles/Vol] 4.0 3.5-5.0 mEq/L Normal 09-27-19 20 [facility] ([place]) (0000 0) Comment: Performed By: #### UA, UAMIC #### [address] [address] Sodium [Moles/Vol] 141 136-145 mEq/L Normal 09-27-2019 [facility] ([place] (21492) Comment: Performed By: #### UA, UAMIC #### [address] [address] Urea nitrogen [Mass/Vol] 6.0 8.0-22.0 mg/dL Low 09-27 [facility] ([place]) (0000 0) Comment: Performed By: #### UA, UAMIC #### [address] [address] cbc on 2019-09-27 Erythrocyte distribution 12.5 11.5-15.5 % Normal 09-27 [facility] width (RBC) [Ratio] [facility] ([place]) (90941) Comment: Performed By: #### UA, UAMIC #### [address] [address] Hematocrit (Bld) [Volume 36.5 34.0-46.0 % Normal 09-27 [facility] fraction] ([place]) (0000 0) Comment: Performed By: #### UA, UAMIC #### [place] [phone] Hemoglobin (Bld) 12.1 12.0-16.0 G/dL Normal 09-27-2019 [facility] [Mass/Vol] [facility] ([place]) (63135) Comment: Performed By: #### UA, UAMIC #### [address] [address] MCH (RBC) [Entitic mass] 31.2 27.0-33.0 pg Normal 09-27 [facility] ([place]) (0000 0) Comment: Performed By: #### UA, UAMIC #### [place] [phone] MCHC (RBC) [Mass/Vol] 33.1 32.0-36.0 G/dL Normal 09-27-19 20 [facility] ([place]) (0000 0) Comment: Performed By: #### UA, UAMIC #### [place] [phone] MCV (RBC) [Entitic vol] 94.0 80.0-99.0 fL Normal 2019 [facility] ([place]) (0000 0) Comment: Performed By: #### UA, UAMIC #### [place] [phone] Platelet mean volume 7.9 6.6-10.5 fL Normal 0 [facility] ([place]ld) [Entitic vol] ([place]) (21906) Comment: Performed By: #### UA, UAMIC #### [place] [id number] [place] [address] Platelets (Bld) [#/Vol] 337 150-450 10 3/mcL Normal 2019 [facility] ([place]) (24085) Comment: Performed By: #### UA, UAMIC #### [address] [address] RBC (Bld) [#/Vol] 3.88 4.10-5.30 10 6/mcL Low 09-27-2019 A [facility] ([place]) (0000 0) Comment: Performed By: #### UA, UAMIC #### [address] [address] WBC (Bld) [#/Vol] 10.40 4.50-10.80 10 3/mcL Normal 09-27-2019 [facility] [place] ([place]) ([id number]) Comment: Performed By: #### UA, UAMIC #### [address] [address] .neuabs on Neutrophils (Bld) 8.60 2.25-8.10 10 3/mcL High 09-27-2019 A [facility] [#/Vol] [facility] ([place]) ([id number]) Comment: Performed By: #### UA, UAMIC #### [address] [address] .gfr on 2019-09-27 GFR Non- >60 Normal 09-27 [facility] ([place]) ([id number]) Comment: Result Comment: GFR Population mean for Afri can Ivorian, Non- Americans Ages 20-29 = 116 mL/min/1.73 sq.m. Ages 30-39 = 107 mL/min/1.73 sq.m. Ages 40-49 = 99 mL/min/1.73 sq.m. Ages 50-59 = 93 mL/min/1.73 sq.m. Ages 60-69 = 85 mL/min/1.73 sq.m. Ages 70+ = 75 mL/min/1.73 sq .m. Chronic Kidney Disease: Less than 60 mL/min/1.73 square meters End Stage Renal Disease: Les s than 15 mL/min/1.73 square meters Performed By: #### UA UAMIC #### [address] [address] GFR >60 Normal 0 [facility] ([place]) ([id number]) Comment: Result Comment: GFR Population mean for Afri can Ivorian, Non- Americans Ages 20-29 = 116 mL/min/1.73 sq.m. Ages 30-39 = 107 mL/min/1.73 sq.m. Ages 40-49 = 99 mL/min/1.73 sq.m. Ages 50-59 = 93 mL/min/1.73 sq.m. Ages 60-69 = 85 mL/min/1.73 sq.m. Ages 70+ = 75 mL/min/1.73 sq .m. Chronic Kidney Disease: Less than 60 mL/min/1.73 square meters End Stage Renal Disease: Les s than 15 mL/min/1.73 square meters Performed By: #### UA UAMIC #### [address] [address] .auto diff on 09-27 Ammonia (P) [Mass/Vol] 0.60 0.09-1.40 10 3/mcL Normal 020 [facility] ([place]) ([id number]) Comment: Performed By: #### UA UAMIC #### [address] [address] Basophils (Bld) 0.00 0.00-0.27 10 3/mcL Normal 09-27-2019 [facility] [#/Vol] [facility] ([place]) ([id number]) Comment: Performed By: #### UA UAMIC #### [address] [address] Basophils/100 WBC (Bld) 0.2 0.0-2.5 % Normal 2019 [facility] ([place]) (0000 0) Comment: Performed By: #### UA UAMIC #### [address] [address] Eosinophils (Bld) 0.00 0.00-0.65 10 3/mcL Normal 09-27-2019 A [facility] [#/Vol] [facility] ([place]) ([id number]) Comment: Performed By: #### UA, UAMIC #### [address] [address] Eosinophils/100 WBC (Bld) 0.1 0.0-6.0 % Normal 09-09 0-2019 [facility] ([place]) (0000 0) Comment: Performed By: #### UA, UAMIC #### [address] [address] Lymphocytes (Bld) 1.20 0.90-4.32 10 3/mcL Normal 09-27-2019 A [facility] [#/Vol] [facility] ([place]) ([id number]) Comment: Performed By: #### UA, UAMIC #### [address] [address] Lymphocytes/100 WBC (Bld) 11.9 20.0-40.0 % Low - 0-2019 [facility] ([place]) (0000 0) Comment: Performed By: #### UA, UAMIC #### [address] [address] Monocytes/100 WBC (Bld) 5.6 2.0-13.0 % Normal 2019 [facility] ([place]) (0000 0) Comment: Performed By: #### UA, UAMIC #### [address] [address] Neutrophils/100 WBC (Bld) 82.2 50.0-75.0 % High - 0-2019 [facility] ([place]) (0000 0) Comment: Performed By: #### UA, UAMIC #### [address] [address] [address] angiography chest w/contrast on 2019-09-15 CT ANGIOGRAPHY CHEST ORIGINAL Normal 0 [facility] W/CONTRAST CT PULMONARY ANGIOGRAM WITH IV CONTRAST: with post-processing, volume rendering and 3-D acquisitions. This exam was performed according to our departmental dose optimization program, and includes the [facility] ([place]) llowing measures where appli cable: automated exposure control, adjustment of the mAs and/or kVp according to patient size and/or exam, and an iterative reconstruction algorithm. (0 0000) CLINICAL STATEMENT: chest pa in; suspect PE. Shortness of breath and chest tightness, 25 weeks gestation COMPARISON:None. FINDINGS: There is adequate contrast opacification of the pulmonary arterial vasculature. There is no filling defect or vessel cutoff to indicate pulmonary embolus to the level of the segmental arteries . The pulmonary arteries are normal in size. There is no evidence of right heart strain. The thoracic aorta is normal in caliber, and demonstrates no evidence of dissection. There is no pericardial effu francis. There is no evidence of coronary artery calcification. No lymphadenopathy is identified. The trachea is normal. The l ungs are clear. There is no pneumothorax or pleural fluid. There is no acute fracture or aggressive osseous lesion. There is a small hiatal tammy ia. Otherwise Limited images of the upper abdomen appear normal. IMPRESSION: No pulmonary emboli or dissection. Small hiatal hernia. I have personally reviewed t he images of this examination and agree with the resident's findings and interpretation. Interpreted By: Isaiah Lazar MD Preliminary Report By: Jean Carlos Velez DO Electronically Signed By: Isaiah Lazar MD Dictated Date: 09/14/2019 11:10:28 PM Prelim Date: 09/14/2019 11:14:10 PM Sign Date: 09/15/2019 12:01:50 AM Ordering Provider:Otilia costa on 2019-09-14 RBC (U) [#/Vol] 0-2 0-2 Normal 09-14-2019 l [facility] ([place]) ([id number]) Comment: Performed By: #### OMA ERNANDEZMIC #### [address] [address] UA Amorphus 4+ /hpf Normal 09-14-2019 [facility] ([place]) ([id number]) Comment: Performed By: #### UA UAMIC #### [address] [address] UA Squam Epithelial 5-10 0-20 Normal 09-14-2019 [facility] ([place]) ([id number]) Comment: Performed By: #### UA, UAMIC #### [facility] [address] [place] [address] UA WBC 5-10 0-5 09-14-2019 [facility] ([place]) ([id number]) Comment: Performed By: #### UA, UAMIC #### [address] [address] ua on 2019-09-14 Color (U) Yellow Normal 09-14-2019 [facility] ([place]) ([id number]) Comment: Performed By: #### UA, UAMIC #### [address] [address] Glucose (U) [Mass/Vol] Negative Negative mg/dL Normal 020 [facility] ([place]) ([id number]) Comment: Performed By: #### UA, UAMIC #### [address] [address] Ketones Ql (U) 80 Neg-Trace mg/dL 09-14-2019 [facility] ([place]) ([id number]) Comment: Performed By: #### UA, UAMIC #### [address] [address] UA Appear Sita 09-14-2019 [facility] ([place]) ([id number]) Comment: Performed By: #### UA, UAMIC #### [address] [address] UA Blood Negative Neg-Trace Normal 09-14-2019 [facility] ([place]) ([id number]) Comment: Performed By: #### UA, UAMIC #### [facility] [address] [place] [address] UA Leuk Est Negative Negative Normal 09-14-2019 [facility] ([place]) ([id number]) Comment: Performed By: #### UA, UAMIC #### [address] [address] UA Nitrite Negative Negative Normal 09-14-2019 [facility] ([place] ([id number]) Comment: Performed By: #### UA, UAMIC #### [address] [address] UA pH 7.5 5.0 - 8.0 Normal 09-14-2019 [facility] ([place]) ([id number]) Comment: Performed By: #### UA, UAMIC #### [address] [address] UA Protein Negative Negative Normal 09-14-2019 [facility] ([place]) ([id number]) Comment: Performed By: #### UA, UAMIC #### [address] [address] UA Spec Grav 1.020 Normal 09-14-2019 [facility] ([place]) ([id number]) Comment: Performed By: #### UA, UAMIC #### [address] [address] UA Specimen Type Clean Catch Normal 09-14-2019 [facility] ([place]) ([id number]) Comment: Performed By: #### UA, UAMIC #### [address] [address] UA Urobilinogen 2.0 E.U./dL 09-14-2019 [facility] ([place]) ([id number]) Comment: Performed By: #### UA, UAMIC #### [address] [address] Urobilinogen Qn (U) Negative Neg-Trace Normal 09-14-2019 [facility] ([place]) (0000 0) Comment: Performed By: #### UA, UAMIC #### [address] [address] tropi on 2019-09-14 Troponin I.cardiac <0.015 0.000-0.040 ng/mL Normal 0 [facility] [Mass/Vol] [facility] ([place]) ([id number]) Comment: Result Comment: Troponin I r eference ranges (04/15/14): 0.00-0.040 ng/mL Negative an d non-diagnostic. >0.040 ng/mL Consistent with cardiac damage, increased clinical risk and possibility of myocardial in farction. Serial measurements, a rise & fall in test results, clinical histo ry, appropriate symptoms and/or ECG changes may help assess possibility of ME. *Other non-acute coronary sy ndrome conditions such as CHF, myoc arditis, pulmonary emboli, sepsis and cardiac surgery could result in myoc ardial damage and increased troponi n levels. Performed By: #### UA, UAMIC #### [address] [address] dimer on 2019-09-14 Fibrin D-dimer FEU IA 264 0-230 ng/mL D-DU High 020 [place] [facility] (Bld) [Mass/Vol] [facility] ([place]) ([id number]) Comment: Result Comment: Results repo rted in D-DU ng/ml. Positive for D-dimer. A posi tive D-dimer may occur in the following: DVT, PE, DIC, Tra ben, Cancer, Sepsis, , Rheumatoid arthritis, Myocar dial infarction and Cirrhosis. Note: Not affected by Rheuma toid Factor <=1400 IU/mL The result of the D-Dimer te st should be evaluated in the context of all the clinical and laboratory data available. In those instances where the laboratory result does not agree with the clinical eval uation, additional tests should be performed accordingly. Performed By: #### UA, UAMIC #### [address] [address] cbc on 2019-09-14 Erythrocyte distribution 12.9 11.5-15.5 % Normal 09-14 [facility] width (RBC) [Ratio] [facility] ([place]) ([id number]) Comment: Performed By: #### CBC, ADIF F, ANEU, BMP, GFR, TROPI, DIMER #### [address] [address] Hematocrit (Bld) [Volume 37.9 34.0-46.0 % Normal 09-14 [facility] fraction] ([place]) (0000 0) Comment: Performed By: #### CBC, ADIF F, ANEU, BMP, GFR, TROPI, DIMER #### [address] [address] Hemoglobin (Bld) 12.8 12.0-16.0 G/dL Normal 09-14-2019 [facility] [Mass/Vol] [facility] ([place]) ([id number]) Comment: Performed By: #### CBC, ADIF F, ANEU, BMP, GFR, TROPI, DIMER #### [address] [address] MCH (RBC) [Entitic mass] 31.5 27.0-33.0 pg Normal 09-14 [facility] ([place]) (0000 0) Comment: Performed By: #### CBC, ADIF F, ANEU, BMP, GFR, TROPI, DIMER #### [place] [address] MCHC (RBC) [Mass/Vol] 33.9 32.0-36.0 G/dL Normal 09-14-19 20 [facility] ([place]) (0000 0) Comment: Performed By: #### CBC, ADIF F, ANEU, BMP, GFR, TROPI, DIMER #### [place] [address] MCV (RBC) [Entitic vol] 93.1 80.0-99.0 fL Normal 2019 [facility] ([place]) (0000 0) Comment: Performed By: #### CBC, ADIF F, ANEU, BMP, GFR, TROPI, DIMER #### [place] [address] Platelet mean volume 7.7 6.6-10.5 fL Normal 0 [facility] (Bld) [Entitic vol] ([place]) ([id number]) Comment: Performed By: #### CBC, ADIF F, ANEU, BMP, GFR, TROPI, DIMER #### [place] [id number] Platelets (Bld) [#/Vol] 285 150-450 10 3/mcL Normal 2019 [facility] ([place]) ([id number]) Comment: Performed By: #### CBC, ADIF F, ANEU, BMP, GFR, TROPI, DIMER #### [place] [address] RBC (Bld) [#/Vol] 4.07 4.10-5.30 10 6/mcL Low 09-14-2019 [facility] ([place]) (0000 0) Comment: Performed By: #### CBC, ADIF F, ANEU, BMP, GFR, TROPI, DIMER #### [address] [address] WBC (Bld) [#/Vol] 14.10 4.50-10.80 10 3/mcL High 09-14-2019 [facility] ([place]) (0000 0) Comment: Performed By: #### CBC, ADIF F, ANEU, BMP, GFR, TROPI, DIMER #### [address] [address] bmp on 2019-09-14 Calcium [Mass/Vol] 8.6 8.4-10.1 mg/dL Normal 09-14-2019 [facility] ([place] (0000 0) Comment: Performed By: #### CBC, ADIF F, ANEU, BMP, GFR, TROPI, DIMER #### [address] [address] Chloride [Moles/Vol] 106 98-110 mEq/L Normal 0 [facility] ([place] (0000 0) Comment: Performed By: #### CBC, ADIF F, ANEU, BMP, GFR, TROPI, DIMER #### [address] [address] CO2 [Moles/Vol] 25 22-32 mEq/L Normal 09-14-2019 [facility] ([place]) ([id number]) Comment: Performed By: #### CBC, ADIF F, ANEU, BMP, GFR, TROPI, DIMER #### [address] [address] Creatinine [Mass/Vol] 0.50 0.50-1.20 mg/dL Normal 09-14-19 20 [facility] ([place]) ([id number]) Comment: Performed By: #### CBC, ADIF F, ANEU, BMP, GFR, TROPI, DIMER #### [address] [address] Electrolyte Balance 7.0 4.0-15.0 mEq/L Normal 09-14-2019 [facility] ([place]) (0000 0) Comment: Performed By: #### CBC, ADIF F, ANEU, BMP, GFR, TROPI, DIMER #### [address] [address] Glucose [Mass/Vol] 90 70-110 mg/dL Normal 09-14-2019 [facility] ([place]) ([id number]) Comment: Performed By: #### CBC, ADIF F, ANEU, BMP, GFR, TROPI, DIMER #### [address] [address] Potassium [Moles/Vol] 3.6 3.5-5.0 mEq/L Normal 09-14-19 [facility] ([place]) (0000 0) Comment: Performed By: #### CBC, ADIF F, ANEU, BMP, GFR, TROPI, DIMER #### [address] [address] Sodium [Moles/Vol] 138 136-145 mEq/L Normal 09-14-2019 [facility] ([place]) ([id number]) Comment: Performed By: #### CBC, ADIF F, ANEU, BMP, GFR, TROPI, DIMER #### [address] [address] Urea nitrogen [Mass/Vol] 6.0 8.0-22.0 mg/dL Low 09-14 [facility] ([place] (0000 0) Comment: Performed By: #### CBC, ADIF F, ANEU, BMP, GFR, TROPI, DIMER #### [address] [address] Urea nitrogen/Creatinine 12.0 10.0-22.0 ratio Normal 09-14 [facility] [Mass ratio] [facility] ([place]) ([id number]) Comment: Performed By: #### CBC, ADIF F, ANEU, BMP, GFR, TROPI, DIMER #### [address] [address] .neuabs on Neutrophils (Bld) 12.00 2.25-8.10 10 3/mcL High 09-14-2019 [facility] [#/Vol] [facility] ([place]) ([id number]) Comment: Performed By: #### CBC, ADIF F, ANEU, BMP, GFR, TROPI, DIMER #### [facility] [address] [place] [address] .gfr on 2019-09-14 GFR Non- >60 Normal 09-14 [facility] ([place]) ([id number]) Comment: Result Comment: GFR Population mean for Afri can Ivorian, Non- Americans Ages 20-29 = 116 mL/min/1.73 sq.m. Ages 30-39 = 107 mL/min/1.73 sq.m. Ages 40-49 = 99 mL/min/1.73 sq.m. Ages 50-59 = 93 mL/min/1.73 sq.m. Ages 60-69 = 85 mL/min/1.73 sq.m. Ages 70+ = 75 mL/min/1.73 sq .m. Chronic Kidney Disease: Less than 60 mL/min/1.73 square meters End Stage Renal Disease: Les s than 15 mL/min/1.73 square meters Performed By: #### UA, UAMIC #### [address] [address] GFR >60 Normal 0 [facility] ([place]) ([id number]) Comment: Result Comment: GFR Population mean for Afri can Ivorian, Non- Americans Ages 20-29 = 116 mL/min/1.73 sq.m. Ages 30-39 = 107 mL/min/1.73 sq.m. Ages 40-49 = 99 mL/min/1.73 sq.m. Ages 50-59 = 93 mL/min/1.73 sq.m. Ages 60-69 = 85 mL/min/1.73 sq.m. Ages 70+ = 75 mL/min/1.73 sq .m. Chronic Kidney Disease: Less than 60 mL/min/1.73 square meters End Stage Renal Disease: Les s than 15 mL/min/1.73 square meters Performed By: #### UA, UAMIC #### [address] [address] .auto diff on 09-14 Ammonia (P) [Mass/Vol] 0.70 0.09-1.40 10 3/mcL Normal 020 [facility] ([place]) ([id number]) Comment: Performed By: #### CBC, ADIF F, ANEU, BMP, GFR, TROPI, DIMER #### [address] [address] Basophils (Bld) 0.00 0.00-0.27 10 3/[facility] Normal 09-14-2019 [facility] [#/Vol] [facility] ([place]) ([id number]) Comment: Performed By: #### CBC, ADIF F, ANEU, BMP, GFR, TROPI, DIMER #### [address] [address] Basophils/100 WBC (Bld) 0.2 0.0-2.5 % Normal 2019 [facility] ([place]) (0000 0) Comment: Performed By: #### CBC, ADIF F, ANEU, BMP, GFR, TROPI, DIMER #### [address] [address] Eosinophils (Bld) 0.00 0.00-0.65 10 3/[facility] Normal 09-14-2019 [facility] [#/Vol] [facility] ([place]) ([id number]) Comment: Performed By: #### CBC, ADIF F, ANEU, BMP, GFR, TROPI, DIMER #### [address] [address] Eosinophils/100 WBC (Bld) 0.2 0.0-6.0 % Normal 02 [facility] ([place]) (0000 0) Comment: Performed By: #### CBC, ADIF F, ANEU, BMP, GFR, TROPI, DIMER #### [address] [address] Lymphocytes (Bld) 1.40 0.90-4.32 10 3/[facility] Normal 09-14-2019 [facility] [#/Vol] [facility] ([place]) ([id number]) Comment: Performed By: #### CBC, ADIF F, ANEU, BMP, GFR, TROPI, DIMER #### [address] [address] Lymphocytes/100 WBC (Bld) 9.7 20.0-40.0 % Low 02-0 [facility] ([place]) (0000 0) Comment: Performed By: #### CBC, ADIF F, ANEU, BMP, GFR, TROPI, DIMER #### [address] [address] Monocytes/100 WBC (Bld) 5.0 2.0-13.0 % Normal 2019 [facility] ([place]) (0000 0) Comment: Performed By: #### CBC, ADIF F, ANEU, BMP, GFR, TROPI, DIMER #### [address] [address] Neutrophils/100 WBC (Bld) 84.9 50.0-75.0 % High 02- [facility] ([place]) (0000 0) Comment: Performed By: #### CBC, ADIF F, ANEU, BMP, GFR, TROPI, DIMER #### [address] [address] bact/cand vag grm st on 2019-08-30 Bact/Cand Vag Grm Sp. Request/Comment: - Swab Norm al 08-30-2019 [facility] ([id number]) Smear Result - BACTERIAL VAG INOSIS RESULT: Stain results consistent with normal vaginal aida. No Yeast observed Few Polymorphonuclear leukocytes Many Epithelial cells Comment: Performed By: #### BVCNSM ## ##[facility] [address] [place], [place] [phone] progress on 2019-07 PROGRESS HNO ID: [id number] Normal 08-02-2019 [facility] Author: Alejandro Chery ([id number]) Service: ? Author Type: Physician Type: Progress Notes Filed: 08/02/2019 11:44 AM Note Text: Please see ultrasound report for details of this visit. Alejandro Chery M.D. tsh on 2019-07-04 TSH Qn 2.620 0.270-4.200 uU/mL Normal 07-04-2019 [facility] ([id number]) Comment: Result Comment: If the patie nt is , TSH reference range varies by gestational period: First Trimester (weeks 9-12) : 0.180-2.990 mcIU/mL Second Trimester: 0.110-3.98 0 mcIU/mL Third Trimester: 0.480-4.710 mcIU/mL Eddie Blackmon et al. A Practica l Approach for the Verifications and Determination of Site- and Trimester-Specific Reference Intervals for Thyroid Function tests in . Thyroid, 2019:29:3:412-420. Al derek E, et al. 2017 Guide lines of the [place] Thy[employer] Association for the Diagnosis and Management of Thyroid Disease during and the . Thyroid, 2017:27:3:315-389. Performed By: #### TSH ####C [facility] [place], [place] [phone] cur on 2019-06-09 CUR . Normal 06-09-2019 [facility] MICRO - Microbiology [facility] ([place]) ([id number]) PROCEDURE: Urine Culture [*1] SOURCE: Urine, Clean Catch BODY SITE: COLLECTED DATE/TIME: 019 18:31 EDT RECEIVED DATE/TIME: 06/07/2019 19:11 EDT START DATE/TIME: 06/07/2019 19:11 EDT FREE TEXT SOURCE: FINAL REPORTS Final Report [] Verified Date/Time/Personnel: 06/09/2019 07:20 EDT No growth at 48 hours. PRELIMINARY REPORTS Preliminary Report [] Verified Date/Time/Personnel: 06/08/2019 08:36 EDT No growth to date Performing Locations *1: This test was performed at: [facility], [address] [place] [address], [address]- , [place] Comment: Performed By: #### CUR #### [address] [address] uamic on 2019-06-07 RBC (U) [#/Vol] Rare 0-2 Normal 06-07-2019 [facility] ([place]) ([id number]) Comment: Performed By: #### UA, UAMIC #### [address] [address] UA Bacteria 3+ Negative /hpf 06-07-2019 [facility] ([place]) ([id number]) Comment: Performed By: #### UA, UAMIC #### [facility] [address] [place] [address] UA Mucous 4+ /hpf Normal 06-07-2019 [facility] ([place]) ([id number]) Comment: Performed By: #### UA, UAMIC #### [facility] [address] [place] [address] UA Squam Epithelial 10-20 0-20 Normal 06-07-2019 [facility] ([place]) ([id number]) Comment: Performed By: #### UA, UAMIC #### [facility] [address] [place] [address] UA WBC 3-5 0-5 Normal 06-07-2019 [facility] ([place]) ([id number]) Comment: Performed By: #### UA, UAMIC #### [address] [address] ua on 2019-06-07 Color (U) [place] 06-07-2019 [facility] ([place]) ([id number]) Comment: Performed By: #### UA, UAMIC #### [facility] [address] [place] [address] Glucose (U) [Mass/Vol] Negative Negative mg/dL Normal 019 [facility] ([place]) ([id number]) Comment: Performed By: #### UA, UAMIC #### [address] [address] Ketones Ql (U) 15 Neg-Trace mg/dL 06-07-2019 [facility] ([place]) ([id number]) Comment: Performed By: #### UA, UAMIC #### [facility] [address] [place] [address] UA Appear Sita 06-07-2019 [facility] ([place]) (17790) Comment: Performed By: #### UA, UAMIC #### [facility] [address] [place] [address] UA Blood Negative Neg-Trace Normal 06-07-2019 [facility] ([place]) ([id number]) Comment: Performed By: #### UA, UAMIC #### [address] [address] UA Leuk Est Negative Negative Normal 06-07-2019 [facility] ([place] ([id number]) Comment: Performed By: #### UA, UAMIC #### [address] [address] UA Nitrite Negative Negative Normal 06-07-2019 [facility] ([place] ([id number]) Comment: Performed By: #### UA, UAMIC #### [place] [address] UA pH 7.5 5.0 - 8.0 Normal 06-07-2019 [facility] ([place]) ([id number]) Comment: Performed By: #### UA, UAMIC #### [place] [address] UA Protein 30 Negative mg/dL Normal 06-07-2019 [facility] ([place] ([id number]) Comment: Performed By: #### UA, UAMIC #### [place] [address] UA Spec Grav 1.015 Normal 06-07-2019 [facility] ([place]) ([id number]) Comment: Performed By: #### UA, UAMIC #### [place] [address] UA Specimen Type Clean Catch Normal 06-07-2019 [facility] ([place] ([id number]) Comment: Performed By: #### UA, UAMIC #### [place] [address] UA Urobilinogen >=8.0 06-07-2019 [facility] ([place] ([id number]) Comment: Performed By: #### UA, UAMIC #### [place] [id number] Urobilinogen Qn (U) Negative Neg-Trace Normal 06-07-2019 [facility] ([place] (0000 0) Comment: Performed By: #### UA, UAMIC #### [place] [id number] msc on 2019-06-07 [place]LL[place] Normal 06-07-2019 [facility] ([id number]) MSC DATE OF SERVICE: 06/07/2019 Normal [facility] REASON OF VISIT: Vomiting. Medical HISTORY OF PRESENT ILLNESS: This is a 19-year-old female who is 11 weeks , Center having vomiting for the last 5-6 days. Denied any abdominal pain. No bleeding. She At[place] cannot keep any fluid down. It has been many days since she can eat or drink well. ([id number]) Her last good urine output w as yesterday morning. She called her OB and was told to come to [facility] or go to the ER, she came to [facility] to ge t IV fluids. REVIEW OF OTHER SYSTEMS: Normal. ALLERGIES: ZITHROMAX. MEDICATIONS: Reviewed. PHYSICAL EXAMINATION: She is awake, alert, not in distress. No dyspnea. She does not look ill, but looks slig htly tired. Temperature 97.5, blood pressure 120/69, pulse 100, respirations 16, pulse oximetry 99% on room air, pain score 0/10. HEENT: Unremarkable. Chest: Clear to auscultate. Heart: Regular rhy thm. No CVA tenderness. Abdomen: Was sof t, nontender, no guarding, nondistended. Liver was not palpable. ASSESSMENT: Hyperemesis gravidarum with decreased urin e output, dehydration. PLAN: Clinical findings were discussed with the patient in detail. I explained to the patient that this [facility] cannot give IV fluids. She needs to go to the ER for further evaluation and care and get IV hydration. It is very important that she go as soon as possible. She und erstands and agreed. She has not decided which ER to go, but she will drive. She is clinically stable to dr woodson herself to the ER. Yanelis Perkins MD PP/[id number] [facility] File#: [id number] Verified/Reviewed by 06/12/19 Ace ROMANO [facility] PATIENT NAME: KENIA NAVA [facility] MEDICAL REC #: [id number] [place] [address] [facility] PHYSICIAN bmp on 2019-06-07 Creatinine [Mass/Vol] 0.59 0.50-1.20 mg/dL Normal 06-07-20 19 [facility] ([place]) ([id number]) Comment: Performed By: #### BMP, GFR #### [address] [address] Urea nitrogen/Creatinine [Mass 8.5 10.0-22.0 ratio Low 06-07-2019 [facility]] [facility] ([place]) ([id number]) Comment: Performed By: #### BMP, GFR #### [address] [address] Calcium [Mass/Vol] 9.0 8.4-10.1 mg/dL Normal 06-07-2019 [facility] ([place] (0000 0) Comment: Performed By: #### BMP, GFR #### [address] [address] Chloride [Moles/Vol] 105 98-110 mEq/L Normal 9 [facility] ([place] (0000 0) Comment: Performed By: #### BMP, GFR #### [address] [address] CO2 [Moles/Vol] 28 22-32 mEq/L Normal 06-07-2019 [facility] ([place]) ([id number]) Comment: Performed By: #### BMP, GFR #### [address] [address] Electrolyte Balance 3.0 4.0-15.0 mEq/L Low 06-07-2019 [facility] [place] (07031) Comment: Performed By: #### BMP, GFR #### [address] [address] Glucose [Mass/Vol] 88 70-110 mg/dL Normal 06-07-2019 [facility] [place] ([id number]) Comment: Performed By: #### BMP, GFR #### [address] [address] Potassium [Moles/Vol] 3.4 3.5-5.0 mEq/L Low 06-07-20 19 [facility] [place] ([id number]) Comment: Performed By: #### BMP, GFR #### [address] [address] Sodium [Moles/Vol] 136 136-145 mEq/L Normal 06-07-2019 [facility] [place] ([id number]) Comment: Performed By: #### BMP, GFR #### [address] [address] Urea nitrogen [Mass/Vol] 5.0 8.0-22.0 mg/dL Low 06-07 [facility] ([place] (0000 0) Comment: Performed By: #### BMP, GFR #### [address] [address] .gfr on 2019-06-07 GFR >60 Normal 9 [facility] ([place] ([id number]) Comment: Result Comment: GFR Population mean for Afri can Ivorian, Non- Americans Ages 20-29 = 116 mL/min/1.73 sq.m. Ages 30-39 = 107 mL/min/1.73 sq.m. Ages 40-49 = 99 mL/min/1.73 sq.m. Ages 50-59 = 93 mL/min/1.73 sq.m. Ages 60-69 = 85 mL/min/1.73 sq.m. Ages 70+ = 75 mL/min/1.73 sq .m. Chronic Kidney Disease: Less than 60 mL/min/1.73 square meters End Stage Renal Disease: Les s than 15 mL/min/1.73 square meters Performed By: #### BMP, GFR #### [address] [address] GFR Non- >60 Normal 06-07 [facility] ([place] ([id number]) Comment: Result Comment: GFR Population mean for Afri can Ivorian, Non- Americans Ages 20-29 = 116 mL/min/1.73 sq.m. Ages 30-39 = 107 mL/min/1.73 sq.m. Ages 40-49 = 99 mL/min/1.73 sq.m. Ages 50-59 = 93 mL/min/1.73 sq.m. Ages 60-69 = 85 mL/min/1.73 sq.m. Ages 70+ = 75 mL/min/1.73 sq .m. Chronic Kidney Disease: Less than 60 mL/min/1.73 square meters End Stage Renal Disease: Les s than 15 mL/min/1.73 square meters Performed By: #### BMP, GFR #### [address] [address] urine culture on 26-05-30 Bacteria identified Sp. Request/Comment: - Specimen received in pre servative Normal 06-06-2019 [facility] Cx Nom (U) [place] ([id number]) Culture Result - 10,000 - <50,000 CFU/ml Normal urogenital f jose Comment: Performed By: #### URCUL ### [address] [phone] type and scr,prenatl on 2019-06-06 ABO/RH(D) A POSITIVE Normal 06-06-2019 [facility] ([id number]) Comment: Performed By: #### TSPN #### [place] [address] [place], [place] [phone] toxicology screen,ur on 2019-06-06 Amphetamines, Urine Negative Negative Normal 06-06-2019 [facility] ([id number]) Comment: Result Comment: Cutoff thres hold at 1000 ng/mL. Performed By: #### UTOX2 ### #[place] [address], [place] [phone]- [phone] Barbiturates, Urine Negative Negative Normal 06-06-2019 [facility] ([id number]) Comment: Result Comment: Cutoff thres hold at 200 ng/mL. Performed By: #### UTOX2 ### #[place] [address] [place] [phone]- [phone] Benzodiazepines, Ur Negative Negative Normal 06-06-2019 [facility] ([id number]) Comment: Result Comment: Cutoff thres hold at 200 ng/mL. Performed By: #### UTOX2 ### #[place] [address] [place] [phone] Cannabinoids, Urine Negative Negative Normal 06-06-2019 [facility] ([id number]) Comment: Result Comment: Cutoff thres hold at 50 ng/mL. Performed By: #### UTOX2 ### #[place] [address] [place] [phone] Cocaine, Urine Negative Negative Normal 06-06-2019 [facility] ([id number]) Comment: Result Comment: Cutoff thres hold at 300 ng/mL. Performed By: #### UTOX2 ### #[place] [address] [place] [phone] Ethanol, Urine <11 <11 Normal 06-06-2019 [facility] ([id number]) Comment: Performed By: #### UTOX2 ### #[place] [address] [place] [phone]- [phone] Opiates, Urine Negative Negative Normal 06-06-2019 [facility] ([id number]) Comment: Result Comment: Cutoff thres hold at 300 ng/mL. Performed By: #### UTOX2 ### #[place] [address] [place] [phone]- [phone] Oxycodone, Urine Negative Negative Normal 06-06-2019 [facility] ([id number]) Comment: Result Comment: Cutoff thres hold at 100 ng/mL. Comment: Immunoassay screen only. Incinerator Plant Supervisor ss reactivity with other substances can occur with immunoassay screening. Detection of any drug(s) in this urine toxicology panel is presumptive only. These tests are for med ical purposes only and shoul d not be used for compliance monitoring, legal, or forensic use. Samples should be within nor mal physiological conditions (e.g. pH). This assay does not include adulteration/specimen validity testing. In clinical settings, confir matory testing is at the practitioner's discretion [1]. If clinically indicated, confirmation by high specificity, quantitative methodology, which includes adulteration/speci men validity testing, may be requested on the same specimen through Client Services ([phone]) if contacted within 48 hours of initial testing. [1]Substance Abuse and [facility] Services Administration (2012). Clinical Drug Testing in Primary Care Technical Assistance Publication Series 32. Department of Health and Human Services, [place], p.10. Performed By: #### UTOX2 ### #[facility] [place], [place] [phone] Phencyclidine, Urine Negative Negative Normal 9 [facility] ([id number]) Comment: Result Comment: Cutoff thres hold at 25 ng/mL. Performed By: #### UTOX2 ### [address] [phone] syphilis ttl w/reflx on 2019-06-06 Syphilis Interp Cannot exclude recent Normal [facility] Treponemal infection if [place] ([id number]) specimen collected within 7 to 10 days after appearance of suspect lesions or 2 to 3 weeks after an exposure. Clinical correlation is required. Comment: Performed By: #### CBC, SYPH TX, HBSAG, AHCV, HIV12C, RUBIGG #### [facility] [address] [place], [place] [address] Syphilis Screen Non Reactive Non Reactive Normal 06-06-20 19 [facility] ([id number]) Comment: Performed By: #### CBC, SYPH TX, HBSAG, AHCV, HIV12C, RUBIGG #### [facility] [address] [place], [place] [address] rubella igg antibody on 2019-06-06 Rubella IgG Ab 3.08 Index Value Normal 06-06-2019 [facility] ([id number]) Comment: Result Comment: Index values are interpreted as follows: Negative specimens <0.90 Equivocol specimens 0.90 to 0.99 Positive specimens >0.99 The magnitude of the measure d result is not indicative of the amount of antibody present. Performed By: #### CBC, SYPH TX, HBSAG, AHCV, HIV12C, RUBIGG ####[facility], [place] [phone] Rubella IgG Ab, Positive Negative Critically abnormal 05-10 [facility] (99763) Comment: Result Comment: Sample is co nsidered positive for IgG antibodies to rubella virus. A positive result indicates previous exposure to Rubella virus or vaccination. Performed By: #### CBC, SYPH TX, HBSAG, AHCV, HIV12C, RUBIGG ####[place] [address], [place] [phone] [id number] ag +hiv12 ab on 2019-06-06 HIV 12 Ag/Ab Non Reactive Non Reactive Normal 06-06-2019 [facility] ([id number]) Comment: Performed By: #### CBC, SYPH TX, HBSAG, AHCV, HIV12C, RUBIGG ####[place] [address], [place] [phone] HIV-1/2 Antibody Normal 06-06-2019 [facility] ([id number]) Comment: Result Comment: Test Not Ind icated Negative No evidence of HIV-1 or HIV- 2 infection. Should recent infection be suspected, repeat testing may be considered 2-3 weeks after this draw. HIV Information: [place] Rev. C ode 3701.243(E): This information has been di sclosed to you from confidential records protected from disclosure by state law. You shall make no further disclosure of this information without the specific, written, and i nformed release of the indiv idual to whom it pertains or as otherwise permitted by state law. A general authorization for the release of medical or other information is not sufficient for the purpose of the release of HIV test results or diagnoses. Performed By: #### CBC, SYPH TX, HBSAG, AHCV, HIV12C, RUBIGG ####[facility] [address] [place], [place] [phone] hepatitis c ab ia o n 2019-06-06 Hepatitis C Ab IA Negative Negative Normal 06-06-2019 [facility] [place] ([id number]) Comment: Performed By: #### CBC, SYPH TX, HBSAG, AHCV, HIV12C, RUBIGG ####[facility] [address] [place] [phone] hepatitis b surf. ag on 2019-06-06 Hepatitis B Surf. Ag Negative Negative Normal 9 [facility] (56266) Comment: Performed By: #### CBC, SYPH TX, HBSAG, AHCV, HIV12C, RUBIGG #### [facility] [address] [place], [place] [address] cnco on 2019-06-06 CNCO Letter Text Normal 06-06-2019 [facility] ([id number]) cbc on 2019-06-06 Absolute nRBC <0.01 <0.01 Normal 06-06-2019 [facility] ([id number]) Comment: Performed By: #### CBC, SYPH TX, HBSAG, AHCV, HIV12C, RUBIGG #### [facility] [address] [place], [place] [address] Erythrocyte distribution 11.9 11.5-15.0 % Normal 06-06 [facility] width (RBC) [Ratio] [facility] ([id number]) Comment: Performed By: #### CBC, SYPH TX, HBSAG, AHCV, HIV12C, RUBIGG #### [facility] [address] [place], [place] [address] Hematocrit (Bld) [Volume 44.4 36.0-46.0 % Normal 06-06 [facility] fraction] [place] ([id number]) Comment: Performed By: #### CBC, SYPH TX, HBSAG, AHCV, HIV12C, RUBIGG #### [facility] [address] [place], [place] [address] Hemoglobin (Bld) 14.6 11.5-15.5 g/dL Normal 06-06-2019 [facility] [Mass/Vol] [place] ([id number]) Comment: Performed By: #### CBC, SYPH TX, HBSAG, AHCV, HIV12C, RUBIGG #### [facility] [address] [place], [place] [address] MCH (RBC) [Entitic mass] 30.5 26.0-34.0 pG Normal 06-06 [facility] (05458) Comment: Performed By: #### CBC, SYPH TX, HBSAG, AHCV, HIV12C, RUBIGG #### [facility] [address] [place] [address] MCHC (RBC) [Mass/Vol] 32.9 30.5-36.0 g/dL Normal 06-06-20 19 [facility] ([id number]) Comment: Performed By: #### CBC, SYPH TX, HBSAG, AHCV, HIV12C, RUBIGG #### [facility] [address] [place] [address] MCV (RBC) [Entitic vol] 92.7 80.0-100.0 fL Normal 06-06 [facility] ([id number]) Comment: Performed By: #### CBC, SYPH TX, HBSAG, AHCV, HIV12C, RUBIGG #### [facility] [address] [place], [place] [address] Platelet mean volume 10.1 9.0-12.7 fL Normal 9 [facility] (Bld) [Entitic vol] [place] (05171) Comment: Performed By: #### CBC, SYPH TX, HBSAG, AHCV, HIV12C, RUBIGG #### [facility] [address] [place], [place] [address] Platelets (Bld) [#/Vol] 315 150-400 k/uL Normal 2018 [facility] ([id number]) Comment: Performed By: #### CBC, SYPH TX, HBSAG, AHCV, HIV12C, RUBIGG #### [facility] [address] [place], [place] [address] RBC (Bld) [#/Vol] 4.79 3.90-5.20 m/uL Normal 06-06-2019 [facility] ([id number]) Comment: Performed By: #### CBC, SYPH TX, HBSAG, AHCV, HIV12C, RUBIGG #### [facility] [address] [place], [place] [address] WBC (Bld) [#/Vol] 8.58 3.70-11.00 k/uL Normal 06-06-2019 [facility] ([id number]) Comment: Performed By: #### CBC, SYPH TX, HBSAG, AHCV, HIV12C, RUBIGG #### [facility] [address] [place] [address] cnpn on 2019-05-16 CNPN Telephone (WOOB) Normal 05-16-2019 [facility] KENIA NAVA ([id number]) 2000 [facility] Date Time Provider Department ([id number]) 05/16/19 FILIBERTO MIKE WOOB During your visit today, we recorded the following informati on about you: Laury Gracia LPN 05/16/2019 11:40 AM Signed Ob patient is 8w3d AND hurst d stating she has tried Vitamin B6 for her nausea and it has not been effective. P atient is having nausea that is lasting all day AND vomits 1-2 times each. Patie nt is able to keep water AND Gatorade down. Patient asking if she can get a med to help with her nausea? Filiberto Mike MD 05/16/2019 1:42 PM Signed Prescription for Compazine sent. Can continue to use vitamin B6 with this. Melvi Vance RN 05/16/2019 2:01 PM Signed Patient notified. Melvi Vance RN The following approved medic ation requests have been transmitted electronically. Signed Prescriptions Disp Refills prochlorperazine (COMPAZINE) 10 mg tablet 30 tablet 1 Sig: Take 1 tablet by mouth every 6 hours as needed (nausea) . Authorizing Provider: FILIBERTO MIKE Pharmacy Information Pharmacy Address Telephone [facility] [address] [place] [address] Allergies As of Date: 05/16/2019 Noted Allergy Reaction ZITHROMAX (AZITHROMYCIN) 05/03/2019 2 - Rash Date Reviewed: 05/09/2019 Reviewed by: Filiberto Mike - Fully Assessed Reason for Visit: Care [86] Order(s):prochlorperazine (COMPAZINE) 10 mg tabletTake 1 tablet by mouth every 6 hours as needed (nausea).Disp: 30 tabletRfl: 1 Prescriptions as of 05/16/2019 Sig: PROCHLORPERAZINE MALEATE 10 M* Take 1 tablet by mouth every * VITAMIN,CALCIUM,MINE* Take 1 tablet by mouth. LEVOMILNACIPRAN ER 40 MG CAPS* Take by mouth once daily. Problem List As Of Date 05/16/2019 Noted Resolved Nausea and vomiting during [O21.9] INVALID FOR* More... History of depression [Z86.59] INVALID FOR* More... Patient request for diagnostic testing [Z01.89] INVALID FOR* More... Prescriptions ordered this encounter Disp Refills Start End PROCHLORPERAZINE MALEATE 10 MG TABLET 30 t* 1 05/16/2019 Route: ORAL Sig: Take 1 tablet by mouth every 6 hours as needed (nausea) . Encounter Status:Closed by FILIBERTO MIKE MD on 05/16/19 trich vaginalis ampl on 2019-05-09 T vag Amplification Negative for Trichomonas Carlota l 05-09-2019 [facility] vaginalis by Pedro turner ([id number]) amplification Comment: Result Comment: This test wa s developed and its performance characteristics determined by [facility]'s [facility] [place] ([facility]). It has not been cleared or a pproved by the FDA. [facility] is regulated under CLIA as qualified to perform high complexity testing. This test is used for clinical purposes. It should not be regarded as inv estigational or for research . Performed By: #### TRVAMP ## ## [facility] [address] [place], [place] [address] Trich vag Amp Source Cervix Normal 9 [facility] ([id number]) Comment: Performed By: #### TRVAMP ## ## [facility] [address] [place], [place] [address] progress on 2019-05 PROGRESS HNO ID: [id number] Normal 05-09-2019 [facility] Author: Filiberto Mike [place] ([id number]) Service: ? Author Type: Physician Type: Progress Notes Filed: 05/09/2019 10:55 AM Note Text: INITIAL OB ASSESSMENT OB Provider:Filiberto Mike MD HPI: Kenia Nava is a 19 year old female here to [facility]. Patient's last menstrual period was 03/18/2019 (exact date). from OB Dating Form. Cycle length: 28-30 days Complaints: nausea without vomiting was unplanned but accepted. Obstetric History T0 L0 SAB0 TAB0 Ectopic0 Multiple0 Live Births0 Prior : never History of 4th degree laceration: No Patient's Risk Screening for delivery: History of abnormal pap: No Prior treatment for cervical dysplasia: none. History of STDs: None Tobacco use: No Caffeine use: yes Drug use: No Alcohol use: No Multivitamin with Folic acid: Yes Occupation: [employer] Yazdanism or heritage: No Would refuse blood transfusion if medically necessary: No No weight on file for this encounter. Patient BMI over 30? N o Marital Status:Co-habitating Partner: Name: Laron Borrero Age: 25 Occupation: [employer] Gender: male History of STDs: None PAST MEDICAL HISTORY Diagnosis Date - Depression - fracture nose PAST SURGICAL HISTORY Procedure Laterality Date - PAST SURGICAL HISTORY OF rhinoplasty for broken nose Current Outpatient Medications on File Prior to Visit: Psohvmwc-Dp-Rpj-Fe-FA ( VITAMIN) tab Take 1 tablet by mouth. levomilnacipran ER (FETZIMA) 40 mg Take by mouth once daily. No current facility-administered medications on file prior t o visit. Review of Systems: GENERAL: Negative for: Fever or Chills HEENT: Negative for: Headache, Impaired Vision, Ringing in E ars, Nosebleeds NECK: Negative for: Swelling, Pain, Stiffness RESPIRATORY: Negative for: Cough, Shortness of breath, Wheez ing GASTROINTESTINAL: Positive for: Nausea and Vomiting, Positiv e for: Heartburn and neg. for constipatoin MUSCULOSKELETAL: Negative for: Muscle or joint pain, stiffne ss, Joint swelling NEUROLOGIC/PSYCHIATRIC: Negative for: Weakness, Paralysis, N umbness, Tingling, Tremor, Anxiety, Depression, Memory loss SKIN: Negative for: Rash, Itching GENITOURINARY: Negative for: vaginal itching, vaginal discha rge, hematuria or dysuria PHYSICAL EXAM: LMP 03/18/2019 GENERAL: pleasant female in no apparent distress DERMATOLOGY: Normal, without lesions, non-icteric and non-hi rsute NECK: Supple, full range of motion, no adenopathy and thyroi d normal CHEST: Normal inspiratory effort BREAST: soft, non-tender, symmetric, no dominant mass, carlota l nipple-areolar complex, no lymphadenopathy and no nipple dis charge ABDOMEN: soft, non-tender and no masses NEURO: alert and oriented x3,exam grossly non-focal PELVIS: External genitalia normal without lesions. Perineal body intact. No vaginal or cervical lesions. Cervix closed. Uterus 7 week s size. No adnexal masses or tenderness. Clinical Pelvimetry: Pelvimetry clinically assessed as adequ ate Limited OB ultrasound exam: single intrauterine an d crown-rump length c/w 7w 4 day which is c/w LMP ASSESSMENT: 19 year old at 7w3d wks gestational age PLAN: 1) Patient oriented to practice. Discussed nutrition, folic acid supplementation, dietary reinaldo delines, exercise, smoking, alcohol, caffeine, and drug use. Discussed routine OB labs including STD/HIV. Discussed aneuploidy screening options including serum scree emma and nuchal translucency. Patient is considering aneuploidy and carrier screening. 2) if nausea and vomiting worsens, or symptoms of dehydratio n, contact the office. Symptomatic measures for nausea and vomiting of preg kathleen reviewed. 3) discussed with her flu vaccine, will recommend this at ne xt visit. D/w her fetzima in , consider decreasing. Has been on this for amonth> Was on others and they weren't working. Dr. Borges pre scribes Follow up in 4 weeks or sooner prn. Filiberto Mike MD gc/chlamydia amplif on 2019-05-09 Chlamydia Amplif Negative for Chlamydia Normal 05-09-2019 [facility] trachomatis by Jarrod ro ([id number]) amplification. Comment: Performed By: #### GCCT #### [place] [address] [place] [phone] GC Amplification Negative for Neisseria Normal 05-09-2019 [facility] gonorrhoeae by Jarrod ro ([id number]) amplification. Comment: Performed By: #### GCCT #### [place] [address] [place] [phone] GC/Chlam Amp Source Cervix Normal 05-09-2019 [facility] ([id number]) Comment: Performed By: #### GCCT #### [place] [phone] cytology on 2019-05 CYTOLOGY Specimen originated from [facility] Normal 05-09-2019 [place] Specimen #: [id number] [facility] Submitting Physician: FILIBERTO MIKE M.D. ([id number]) [facility] SPECIMEN SUBMITTED ( [id number]) A: CERVICAL, SCREENING, FLUID FINAL DIAGNOSIS A. CERVICAL, SCREENING, FLUID Satisfactory for interpretation. No endocervical component. Negative for intraepithelial lesion or malignancy. This specimen has been analyzed by the [employer] em, an automated imaging and review system, which assists the labor atory in evaluating cells on ThinPrep Pap tests. Following automated imaging, selected brooke from every slide are reviewed by a cytotechn ologist. CECILY Pang(ASCP) (Electronic Signature) CLINICAL DATA ROUTINE EXAM, HPV Testing: Yes, Reflex HPV for ASCUS Date of Last Menstrual Period: Additional Testing: Reflex HPV testing for ASCUS STAINS A: CERVICAL, SCREENING, FLUID THIN PREP WET PROCESS OPERATOR Harris Vides M.D., Commercial Mortgage Broker Date of Report: 05/11/2019 Date of Procedure: 05/09/2019 Date of Receipt: 05/10/2019 Submitted by: FILIBERTO MIKE M.D. ([id number]) Location: [facility] Diagnostic interpretation performed at [place] [address]. CLIA Number: [id number] The Pap Smear is a screening test for cervical cancer. False negative results occur with all screening tests, emphasizing the need for rescreening at recommended intervals, and clinical correlati on. cnnurse on CNNURSE Nurse Visit (WOOB) Normal 05-03-2019 [place] [facility] KENIA NAVA ([id number]) 2000 [facility] Time Provider Department ([id number]) 05/03/19 2:00 PM NURSE PNOB [facility] WOOB During your visit today, we recorded the following informati on about you: Last Period 03/18/19 Shaka Harper RN 05/03/2019 1:59 PM Signed SEQUENTIAL SCREENINGS The [facility] offers sequential s creenings for women who are interested in screenings for chromosomal abnormalit ies and certain defects during a . The sequential screen combines ultrasound and blo od tests to determine the risk of chromosomal abnormalities, including D own's Syndrome (Trisomy 21) and Trisomy 18, as well as open neural tube def ects including spina bifida. Ultrasound exa mination is performed between 11 weeks and 13 weeks gestational age. Blood tests are drawn a fter the ultrasound and again later in the between 15 and 21 weeks gestational age. Bj e let your physician know if you are interested in this testing. It francisco l require an appointment with our ultraso und biofuels production technician. This is not an ultrasound performed by a physician in our office during a routine visit. SIGNS AND SYMPTOMS OF LABOR 1. Contractions every 10 minutes or more often 2. Clear, pink, or brownish fluid (water) leaking from vagin a 3. Feeling that baby is pushing down, pressure 4. Low, dull backache 5. Cramps that feel like a period 6. Cramps with or without diarrhea If you notice any of the abo ve symptoms, contact our office at [phone] and ask to speak with a nurse. After hours, you can call doctors registry at [phone] O R call [facility] at [phone] and ask to have the doctor home mission worker paged. If you consider this an emergency, dial 9-1-1 or go to your nearest emergency department. Cord-Blood Banking Up until recently, the umbil ical cord--along with the blood that remained in it after a baby was born and the cord cut--was simp ly discarded by the hospital. Then, in the late , researchers discovered that cord bl ood possessed unusual properties that made it useful in the tr eatment of patients with some cancers and other illnesses. While the a ctual process of collecting cord blood is straightforward, many parents are not even aware that thi s option now exists, much less familiar with all the issues involved. The case for saving your baby's cord blood The blood running back and forth between your baby and the placenta is full of immature cells called stem cells. Unlike embryon ic stem cells, which have the ability to develop into any type of body cell, cord-bl ood stem cells already are locked into a certain, vital functio n: making all the different components of the blood, such as platelets, white blood cells, and red blood cells-serving, in effect, like bone marrow. When transfused into a patient whose own blood cells have faulty genetic coding or have bee n destroyed by chemotherapy or other cancer treatments, the cord-blood cell s can implant themselves in the bone marrow and generate legions of new, h ealthy cells. These days, cord-blood transplants most commonly are u sed in cancer patients when a donor can't be found for a bone-marrow transplant. Th e treatment is particularly effective in young patients-the [facility] Cord Blood Bank reports a 70 percent success rate in childr en, but only 20 to 40 percent in adults. Researchers envision improving those odds and see many future applications as well, such as curing sickle cell disease and other blood-related genetic illnesses. So ther e is a possibility that your child, or someone else, may need these super-healthy and versatile shaylee ls one day. The drawbacks Aside from not knowing about this medical option , the main reason most people do not save their baby's stem cells is cost. In a private [employer] bank, the initial costs run from $275 to $1,500. Most also charge a yearly storage fee of $50 to $95. The advantage of using a [facility] [employer] bank is that your sample is saved for only you to use. An alternative to private banking Public cord-blood gruber are an alternative. These cost no money to use, but your sample is not specifically saved for you. Another perso n with a more immediate need may use it. If the time should come gaurang t you need stem cells, yours may still be available, or you may use donations from other people without charge. You also can direct your sample to go to a relative with an immediate need if the blood type matches. Anyone else needing to use stem cells from a public bank who has not been a do nor must pay for it, sometimes tens of thousands of dollars. Will my family benefit from saving stem cells? Right now, situations in which stem cells would be helpful are quite rare. As mentioned earlier, stem-cell transplants are most commonly u sed for rare genetic conditions and for some types of cancer, including l eukemia and lymphoma. And even with these present uses, many questions remain. In cancer treatment, for example, some researchers are concerned abou t the wisdom of transplanting back into the child the same cells that already showed a propensity to become malignant. Doctors also aren 't sure if the number of cells taken at the time of would be enough to treat a full-grown 16-year-old. It is also not completely clear how active the cells would be after years of being stored. The treatment is so new and rare, we just do n't have the data yet to resolve these important issues. What do the experts say? The [place] [employer] encourages philanth [facility] blood banking in public gruber, but only for families with a current or potent ial need. Blood-bank proponents encour age any kind of banking, pointing out that research is getting closer and closer to many diverse, live-saving ap plications. How do I decide? Each family must weigh the p ros and cons for themselves. Some families say that any cost is worth their peace of mind. Others say that in th e face of uncertainty about the effectiveness of the treatment, they w ill use their resources elsewhere. Some choose the middle ground of donmarco antonio ng publicly, knowing that their sample might benefit another family, if not themselves. For more information, ask your doctor or nurse, and be sure to c shahbazk out our article on the technical aspects of cord-blood banking. Technical Aspects of Cord-Blood Banking If you are interested in storing your baby's umbilical -cord blood because of its possible use in emerging medical treatments, you must make arrangements with a blood bank before your child is b orn. The collection procedure is quite simple: After delivery of the baby, the umbilica l cord is clamped and cut in the usual way. The blood that remains in the umbil ical-cord vessels is then collected in sterile containers. The blood may be rem noel from the cord with a large needle or allowed to flow freely, depending on the company's collection system. The containers may look like large test tubes or like the plastic bags used in a blood bank. It does not cause the mother or the baby a ny pain to collect the blood, and no blood is taken that the baby needs at the [facility]. The nurse, roll finisher, or physician will then label the samples, check them over with you, and package them for a special pickup arranged wit h a commercial carrier. When the blood arri ves at the blood-bank facility, it is processed and the parents are notified. It is then kept in an advanced s torage system for years. How do I know that my sample is safe? Power outages and bankruptci es potentially could threaten any organization, but so far none have been reported. It is to be hoped that the scientists in these gruber would arrange for safe transfer to another [facility] ity if the need arose. YOU MUST MAKE ARRANGEMENTS AHEAD OF TIME! Public cord-blood gruber--DONATION: [employer] [phone] [facility]'s Placental Blood Program, [phone] [facility] Umbilical Cord Blood Bank, Private cord-blood gruber--SAVING FOR YOUR OWN USE: [employer], (I think this is the least expensive) [employer] [phone] [employer], [phone]) [employer] [place] Cord Blood Bank, [phone] 700-CORD Cells, [phone] [place] [facility], Cord Blood Registry, ([phone]) [facility] [employer], An Internet search may provide you with additional listings. Shaka Harper RN 05/03/2019 2:17 PM Signed FOB involved. Patient is complaining of nausea and occasiona l vomiting in . Dietary considerations discussed . Vi tamin B6 recommended. Advised patient to call/come in if she is unable to keep any food or fluids down in a 24-hour period.Pt has a history of depression and anxiety diagnosed 5 years ago. She has taken Fetzima for [address] Christian at [facility]. Discussed increased risks of depression during pre gnancy and and importance of reporting the development or worsening of symptoms should they occur.Pt denies states she l ast had suicidal thoughts 2 weeks ago. She states that she calls in and talk to Dr Jony rogers to report how she is feeling. States she get rapid heartbeat with anxiety the pas t 2 weeks once daily that lasts 5-10 minutes. I have asked her to rep ort her symptoms to Dr Borges. Denies any dyspnea or chest pain.Patient a prcie medication is Category C in . States she will report tod ay to Dr Borges that she is and about her racing heartbeat episodes.. Patient desires nuch al ultrasound. Considering genetic screening testing. TKRN Referring Provider: SELF [200] Allergies As of Date: 05/03/2019 Noted Allergy Reaction ZITHROMAX (AZITHROMYCIN) 05/03/2019 2 - Rash Date Reviewed: 05/03/2019 Reviewed by: Shaka Harper RN - Fully Assessed Reason for Visit: Care [86] Cmt: Pre-New OB Primary Visit Diagnosis:Supervision of normal first pregnanc y, antepartum [Z34.00] Other Visit Diagnoses:Nausea and vomiting during [ O21.9] History of depression [Z86.59] Patient request for diagnostic testing [Z01.89] Prescriptions as of 05/03/2019 Sig: VITAMIN,CALCIUM,MINE* Take 1 tablet by mouth. LEVOMILNACIPRAN ER 40 MG CAPS* Take by mouth once daily. Problem List As Of Date 05/03/2019 Noted Resolved Nausea and vomiting during [O21.9] INVALID FOR* More... History of depression [Z86.59] INVALID FOR* More... Patient request for diagnostic testing [Z01.89] INVALID FOR* More... Other instructions from your clinician: SEQUENTIAL SCREENINGS The [facility] offers sequential screenings for women who are interested in screenings for chromosomal abnormalities and c ertain defects during a . The sequential screen combines u ltrasound and blood tests to determine the risk of chromosomal abnormaliti es, including Down's Syndrome (Trisomy 21) and Trisomy 18, as well as open neural tube defects including spina bifida. Ultrasound examination is pe rformed between 11 weeks and 13 weeks gestational age. Blood tests a re drawn after the ultrasound and again later in the between 15 a nd 21 weeks gestational age. Please let your physician know if you are i nterested in this testing. It will require an appointment with our ultras ound biofuels production technician. This is not an ultrasound performed by a physici an in our office during a routine visit. SIGNS AND SYMPTOMS OF LABOR 1. Contractions every 10 minutes or more often 2. Clear, pink, or brownish fluid (water) leaking from vagin a 3. Feeling that baby is pushing down, pressure 4. Low, dull backache 5. Cramps that feel like a period 6. Cramps with or without diarrhea If you notice any of the above symptoms, contact our office at [phone] and ask to speak with a nurse. After hours, you can call doctors registry at [phone] O R call [facility] at [phone] and ask to have the doctor home mission worker paged. If you consider this an emergency, dial 9--1 or go to your nearest emergency department. Cord-Blood Banking Up until recently, the umbilical cord--along with the blood that remained in it after a baby was born and the cord cut--was simply dis carded by the hospital. Then, in the late , researchers discovered th at cord blood possessed unusual properties that made it useful in the zoey tment of patients with some cancers and other illnesses. While the [facility] process of collecting cord blood is straightforward, many parents ar e not even aware that this option now exists, much less familiar with a ll the issues involved. The case for saving your baby's cord blood The blood running back and forth between your baby and the p lacenta is full of immature cells called stem cells. Unlike embryonic s tem cells, which have the ability to develop into any type of body cell , cord-blood stem cells already are locked into a certain, vital function : making all the different components of the blood, such as platelets, wh ite blood cells, and red blood cells-serving, in effect, like bone mar row. When transfused into a patient whose own blood cells have faulty genetic coding or have been destroyed by chemotherapy or other cancer treat ments, the cord-blood cells can implant themselves in the bone marrow a nd generate legions of new, healthy cells. These days, cord-blood transplants most commonly are used in cancer patients when a donor can't be found for a bone-marrow trans plant. The treatment is particularly effective in young patients-the [facility] Cord Blood Bank reports a 70 percent success rate in children, but only 20 to 40 percent in adults. Researchers envision im proving those odds and see many future applications as well, such as rebecca leong sickle cell disease and other blood-related genetic illnesses. So there is a possibility that your child, or someone else, may need these super-healthy and versatile cells one day. The drawbacks Aside from not knowing about this medical option, the main r philip most people do not save their baby's stem cells is cost. In a [facility] blood bank, the initial costs run from $275 to $1,500. Most also c to a yearly storage fee of $50 to $95. The advantage of using a private bank is that your sample is saved for only you to use. An alternative to private banking Public cord-blood gruber are an alternative. These cost no mo lynette to use, but your sample is not specifically saved for you. Another p erson with a more immediate need may use it. If the time should come that you need stem cells, yours may still be available, or you may use donation s from other people without charge. You also can direct your sample to go to a relative with an immediate need if the blood type matches. Anyone els e needing to use stem cells from a public bank who has not been a donor m ust pay for it, sometimes tens of thousands of dollars. Will my family benefit from saving stem cells? Right now, situations in which stem cells would be helpful a re quite rare. As mentioned earlier, stem-cell transplants are most commonl y used for rare genetic conditions and for some types of cancer, includ ing leukemia and lymphoma. And even with these present uses, many questions remain. In cancer treatment, for example, some researchers are concerned about the wisdom of transplanting back into the child the same cells that alread y showed a propensity to become malignant. Doctors also aren't sure if the number of cells taken at the time of would be enough to treat a full-grown 16-year-old. It is also not completely clear how active the cells would be after years of being stored. The treatment is so new and rar e, we just don't have the data yet to resolve these important issues. What do the experts say? The [place] [employer] encourages philanthropic blood banking in public gruber, but only for families with a current or pot ential need. Blood-bank proponents encourage any kind of banking, pointin g out that research is getting closer and closer to many diverse, live- saving applications. How do I decide? Each family must weigh the pros and cons for themselves. Mynor e families say that any cost is worth their peace of mind. Others say that in the face of uncertainty about the effectiveness of the treatment, they w ill use their resources elsewhere. Some choose the middle ground of donati ng publicly, knowing that their sample might benefit another family, if n ot themselves. For more information, ask your doctor or nurse, and be sure to check out our article on the technical aspects of cord-blood banking. Technical Aspects of Cord-Blood Banking If you are interested in storing your baby's umbilical-cord blood because of its possible use in emerging medical treatments, you must make arrangements with a blood bank before your child is born. Th e collection procedure is quite simple: After delivery of the baby, the umbilical cord is clamped an d cut in the usual way. The blood that remains in the umbilical-cord vess els is then collected in sterile containers. The blood may be removed fr om the cord with a large needle or allowed to flow freely, depending on the company's collection system. The containers may look like large test t ubes or like the plastic bags used in a blood bank. It does not cause the mother or the baby any pain to collect the blood, and no blood is taken th at the baby needs at the moment. The nurse, roll finisher, or physician will then label the samples , check them over with you, and package them for a special pickup arrange d with a commercial carrier. When the blood arrives at the blood-bank facility, it is processed and the parents are notified. It is then kept i n an advanced storage system for years. How do I know that my sample is safe? Power outages and bankruptcies potentially could threaten an y organization, but so far none have been reported. It is to b e hoped that the scientists in these gruber would arrange for safe transfe r to another facility if the need arose. YOU MUST MAKE ARRANGEMENTS AHEAD OF TIME! Public cord-blood gruber--DONATION: [employer] [phone] [facility]'s Placental Blood Program, [facility] Umbilical Cord Blood Bank, Private cord-blood gruber--SAVING FOR YOUR OWN USE: [employer], (I think this is the least expensive) [employer] [phone] [employer], [phone]) [employer] [place] Cord Blood Bank, [phone] 700-CORD Cells, [phone] [place] Cry[facility], Cord Blood Registry, (358E[employer], An Internet search may provide you with additional listings. Disposition: Return in 6 days (on 05/09/2019) for New OB with Dr Mike. Follow-up and Disposition History Recorded Encounter Status:Closed by SHAKA HARPER RN on 05/03/19 cur on 2019-03-03 CUR . Normal 03-03-2019 [facility] MICRO - Microbiology [facility]) ([id number]) PROCEDURE: Urine Culture [*1] SOURCE: Urine, Clean Catch BODY SITE: COLLECTED DATE/TIME: 03/01/20 10:00 EDT RECEIVED DATE/TIME: 03/01/2019 21:14 EDT START DATE/TIME: 03/01/2019 21:17 EDT FREE TEXT SOURCE: FINAL REPORTS Final Report [] Verified Date/Time/Personnel: 03/03/2019 14:51 EDT >100,000 organisms per mL Presumptive Lactobacillus species Sensitivity testing is not recommended for one of the following reasons: 1. Established susceptibility patterns are available or 2. Interpretative criteria are not available. PRELIMINARY REPORTS Preliminary Report [] Verified Date/Time/Personnel: 03/02/2019 08:22 EDT No growth to date Performing Locations *1: This test was performed at: [facility], [address] [place] [address], [id number] [place] [address] Comment: Performed By: #### CUR #### [address] [address] Encounters Date Type Reason Provider Location 06-07-2019 - Patient encounter procedure [facility] 06-07-2019 02-19-2020 - Subsequent hospital visit sp Lab Main 02-19-2020 by physician Procedures Procedure Name Date Provider Location Antibody screen 06-06-2019 [facility] ([id number]) Comment: Performed By: #### TSPN #### [facility] [address] [place], [place] [id number] [phone] Plan of Treatment Plan Description Date Location DTAP,TDAP,TD (2 - Td) DTAP,TDAP,TD (2 - Td) 09-28-2029 [facility] ([id number]) PAP TESTING PAP TESTING 05-09-2022 [facility] ([id number]) CHLAMYDIA SCREENING CHLAMYDIA SCREENING 02-18-2021 [facility] ([id number]) (18-24) (18-24) GC (GONORRHEA) SCREENING GC (GONORRHEA) SCREENING 02-18-2021 [facility] ([id number]) (18-24) (18-24) INFLUENZA (#1) INFLUENZA (#1) 2020 [facility] ([id number]) HPV VACCINE (1 - 2-dose HPV VACCINE (1 - 2-dose 2009 [facility] (27751) series) series) Immunizations Vaccine Notes Status Date Location Influenza Seasonal Inj influenza, injectable, (completed) 06-06-20 [facility] Quadrivalent Age 3+ quadrivalent, contains (78076) preservative Tdap (Age 7+) tetanus toxoid, (completed) 09-28-2019 [facility]inic reduced diphtheria (77329) toxoid, and acellular pertussis vaccine, adsorbed Payers Payer Name Policy Number Location AUCARE [id number] [facility] (44 195) [employer]ICA[employer] [id number] [facility] (44 195) The following information is from the original human readable contentNo Payer Records FoundNo Payer Records FoundNo Payer Records FoundNo Payer Records FoundNo Payer Records Found Social History Type Social History Description Date Locat ion [id number] Assigned At Female 2000 [facility] (33124) Tobacco smoking status Former smoker 02-05-2020 [facility] ([id number]) NHIS History of tobacco use Current smoker 05-03-2018 [facility] ([id number]) History of tobacco use Cigarette Smoker 05-03-2018 [facility] ([id number]) Tobacco use and exposure Never used 02-05-2020 [facility] (64379) Alcohol intake Lifetime non-drinker 02-05-2020 [facility] (77852) (finding) History SDOH Alcohol 1 05-03-2019 [facility] (54458) Frequency Sex Assigned At Not on file [facility] (60459) Exposure to SARS-CoV-2 Not sure [facility] (72700) (event) The following information is from the original human readable contentNo Social History Records FoundNo Social History Records FoundNo Social History Records FoundNo Social History Records FoundNo Social History Records Found Goals Patient Goal Desired Goal Advance Directives Advance Directive Response Recorded Date/Time NO NO June 07, 2019 3 :34pm Assessments No Assessments Information Available Summary Purpose Family History No Family History Records FoundNo Family History Records FoundNo Family History Records Found History of Past Illness Problem Noted Date Resolved Date Nausea and vomiting during 05/03/2019 Overview: 05/03/2019Patient is complaining of naus ea and occasional vomiting in . Dietary considerations discussed . Vitam in B6 recommended. Advised patient to call/come in if she is unable to keep an y food or fluids down in a 24-hour period.TKRN Patient request for diagnostic testing 05/03/2019 0 11/21/2019 Overview: 05/03/2019Patient desires nuchal ultrasound. Considering genetic screening testing. TKRN Additional Source Comments FOR RECORDS PERTAINING TO PATIENTS WHO ARE OR HAVE BEEN ENROLLED IN A CHEMICAL DEPENDENCY/SUBSTANCE ABUSE PROGRAM, SOME INFORMATION MAY BE OMITTED. This clinical summary was aggregated from multiple sources. Caution should be exercised in using it in the provision of clinical care. This summary normalizes information from multiple sources, and as a consequence, information in this document may materially changethe coding, format and clinical context of patient data. In addition, data may be omittedin some cases. CLINICAL DECISIONS SHOULD BE BASED ON THE PRIMARY CLINICAL RECORDS. [facility] provides no warranty or guarantee of the accuracy or completeness of information in this document. UNRECOGNIZED CONTENT PROVIDED BELOW FOR UNRECOGNIZED SECTION INFORMATION SOURCE DATE CREATED AUTHOR AUTHOR'S ORGANIZATIO N 10/11/2019 [facility] DATE CREATED AUTHOR AUTHOR'S ORGANIZATIO N [facility] DATE CREATED AUTHOR AUTHOR'S ORGANIZATIO N 02/28/2020 [facility] UNRECOGNIZED CONTENT PROVIDED BELOW FOR UNRECOGNIZED SECTION Source Comments In the event this information is protected by the Federal Confidentiality of Alcohol and Drug Abuse Patient Records regulations: The Federal rules restrict any use of the information to criminally investigate or prosecute any alcohol or drug abuse patient.[facility]
== END 2020-01-01 13:15 | disposition home or self-care (01) | DRG 560 ==
PROVIDERS: Admitting Provider Obstetrics & Gynecology; PCP Family Medicine; Referring Provider Obstetrics & Gynecology; Visit Provider Obstetrics & Gynecology
DX: O48.0 Post-term pregnancy (principal); O70.0 First degree perineal laceration during delivery; O99.344 Other mental disorders complicating childbirth; F32.9 Major depressive disorder, single episode, unspecified; Z3A.41 41 weeks gestation of pregnancy; Z37.0 Single live birth; Z87.891 Personal history of nicotine dependence
CPT/HCPCS: 59025; 59050; 85025; 86850; 86900; 86901; 87635; 99218; G2023; J7120; G0378; J2405; U0004

== ENCOUNTER 2024-10-18 16:11 | Emergency (ER) | payer BC, SELFPAY ==
[2024-10-18 16:11] VITALS: BP 127/66; PULSE 84; RESP 16; TEMP 36.7; O2SAT 98; BMI 28.1
--- NOTE | 2024-10-18 17:08 | EDS_ITS ---
HPI History of Present Illness Chief Complaint: Laceration [facility] Medical History Encounter for screening for COVID-19 Home Medications ?Medication ?Instructions ?Recorded ?Last Taken ?Type fluoxetine 20 mg capsule 20 mg PO DAILY depression 12/28/19 21:00 History 20 mg pantoprazole 20 mg tablet,delayed 20 mg PO DAILY heart burn 12/29/19 12/28/19 21:00 History release 20 mg vits no.130-ferrous fum 1 ea PO DAILY pregnan cy 12/29/19 12/29/19 15:00 History 27 mg iron-folic acid 800 mcg 1 tablet tablet methylprednisolone 4 mg tablets in See Rx Instructions PO PER PKG DIR 11/07/23 Unknown Rx a dose pack (Medrol (Jose Antonio)) #21 tabs cephalexin 500 mg capsule 500 mg PO TID 3 days #9 caps 10/18/24 Unknown Rx Allergy/AdvReac Type Severity Reaction Status Date / Time azithromycin (From Zithromax) Allergy Mild Rash Verified 10/18/24 16:13 Social History (Updated 10/18/24 @ 19:19 by Tawana Elder) household members: family current occupational status: employed Smoking Status: Former smoker EXAM Physical Exam Const Vital Signs: 10/18/24 16:11 Temperature 98.1 F Temperature Source Temporal Pulse Rate 84 Respiratory Rate 16 Blood Pressure 127/66 H Blood Pressure Mean 86 Pulse Ox 98 Oxygen Delivery Method Room Air [facility] [place] Narrative Medical decision making narrative: HISTORY OF PRESENT ILLNESS: 24-year-old female who is left-hand dominant here with concern for laceration to right hand. Last tetanus in 2019. Notes she is attempting open a box when the knife slipped and cut her right hand REVIEW OF SYSTEMS: Pertinent positives: Hand laceration Pertinent negatives: Loss of sensation PHYSICAL EXAM: Nursing triage notes reviewed, Vital signs reviewed Constitutional: please see mdm Neuro: Intact 5/5 strength with ok sign (median), intact finger abduction (ulnar) intact wrist extension (radial n). Intact sensation in the radial, ulnar , and median nerve distributions. Skin: Linear, superficial laceration to the base of the first metatarsal on the dorsal surface. No active bleeding. No obvious tendinous involvement. No foreign bodies noted. MEDICAL DECISION MAKING: Chief Complaint: HAnd laceration External records reviewed: Reviewed last tetanus vaccination MDM Narrative: The patient suffered lacerations to the right first digit On exam there was no evidence of foreign bodies. . There was no evidence of neurovascular injury. Patient had a normal distal vascular exam, and had intact ROM and sensation. There was also no evidence of tendon injury, with normal distal full range of motion, flexion, extension, abduction, abduction. There is no evidence of local joint space involvement at this time. Wound care applied (irrigation and/or local cleansing solution). Laceration repair was then performed please see procedure note. The patient was given signs and symptoms warnings for infection, such as increasing pain, redness, swelling, associated heat, pus or fever. Give prophylactic Keflex for next 3 days. Patient agreed with the plan of care. Procedure: Laceration repair. The procedure was performed by myself. Indication: Wound repair Risks and benefits: risks, benefits and alternatives were discussed Consent: Consent was obtained. Wound Details: Approximately 2 cm in length, 1 mm in depth along the base of the dorsal surface of the right first digit. Anesthesia: Topical let, 1% lidocaine without epinephrine (verbal consent obtained from patient). Wound prep: Patient was prepped and draped in the usual sterile fashion. Tetanus: updated in 2020 Irrigation Solution: Saline Wound Preparation: Soaked in chlorhexidine and normal sterile saline bath The wound was explored to its base in a bloodless field. Procedure Description: Placed 8 running 5-0 Chromic Gut sutures with close approximation. Bleeding controlled. No signs dehiscence of the thumb and full range of motion. Patient tolerated the procedure well with no immediate complications The patient and/or family, caregivers express understanding. The patient and/or family, caregivers agrees with the plan. Shared decision making: I will have a discussion with the patient and or visitors regarding risk/benefits of further testing or admission. They will be made aware of of the risk/benefits inherent in this decision they will be given the opportunity to voice understanding. Total critical care time today provided was at least 0 minutes. This excludes separately billable procedures. Critical care time (if documented) is secondary to the patient having high probability of clinically significant/life thre atening deterioration in the patient's condition which required my urgent intervention. Impression: 1. Finger laceration Dispo: Discharge home This note was generated with [employer] software. It may contain incorrect words, spelling, and punctuation that were not noted in review of the chart prior to signing. Discharge Plan Triage Chief Complaint: Laceration ED Provider: Moses Alvarado Dx/Rx/DC Orders Instructions: ED Laceration Extremity Prescriptions: New cephalexin 500 mg capsule 500 mg PO TID 3 Days Qty: 9 0RF No Action methylprednisolone [Medrol (Jose Antonio)] 4 mg tablets,dose pack See Rx Instructions PO PER PKG DIR Qty: 21 0RF Rx Instructions: PO PER PKG DIR pantoprazole 20 MG tablet 20 mg PO DAILY fluoxetine 20 MG capsule 20 mg PO DAILY vit [id number] 1 EACH tablet 1 ea PO DAILY Stand Alone Forms: ED Work / School Excuse Primary Care Provider: Yolanda Christian Referrals: Yolanda Christian PA-C [Primary Care Provider] - Activity Restrictions/Additional Instructions: Thank you for trusting us with your care today! Please take Tylenol (2 pills, 650 mg), ibuprofen (2 pills, 400 mg) every 6 hours as needed for pain and fever control. Please keep your wound clean and dry. Please not get it wet for 24 hours. After which time soap and water should be fine. Please return to the emergency department if your symptoms change or worsen. Specifically develop signs of infection which include redness, white-yellow discharge, increasing pain or fevers. Please take antibiotics as prescribed. Please follow with your primary care physician for further outpatient evaluation and management. Print Language: Urdu Disposition Disposition: Home, Self Care Discharge Date/Time: 10/18/24 19:24
[2024-10-18] MEDS: Lidocaine/Epi/Tetracaine 50 ML 1 APPLIC TOPICAL (17:42)
[2024-10-18] MEDS: Lidocaine 1% (20 ml mdv) 20 ML Vial 5 ML INFILT (17:42)
== END 2024-10-18 19:24 | disposition home or self-care (01) ==
PROVIDERS: Emergency Provider Emergency Medicine; PCP Family Medicine; Visit Provider Emergency Medicine
DX: S61.216A Laceration without foreign body of right little finger without damage to nail, initial encounter (principal); Z87.891 Personal history of nicotine dependence; X58.XXXA Exposure to other specified factors, initial encounter
CPT/HCPCS: 12001; 99282; A4216